=== PATIENT | male | born 1955 | race Caucasian/White ===

== ENCOUNTER 2016-06-10 08:55 | Day surgery (SDC) | payer OTHER ==
[~2016-06-10] VITALS: Ht 180.3 cm; Wt 81.8 kg
[~2016-06-10 08:55] MED LIST: LEVA500T PO; VALA500T PO
[2016-06-10 09:25] VITALS: BP 111/73; PULSE 82; RESP 20; TEMP 98; O2SAT 97
[2016-06-10] MEDS ORDERED: AZIT500T2 PO (09:26)
[2016-06-10] MEDS ORDERED: VALA500T PO (09:26)
[2016-06-10] MEDS ORDERED: FLUC200T2 PO (09:26)
[2016-06-10] MEDS ORDERED: ETHA400T PO (09:26)
[2016-06-10] MEDS ORDERED: KETO2AER3 (09:26)
[2016-06-10] MEDS ORDERED: LIDOCAINE 1%/EPINEPHrine 1:100,000 SOLN 20 ML VIAL ONE (09:52)
[2016-06-10] MEDS ORDERED: MIDAZOLAM HCL 5 MG/5 ML VIAL ONE (09:54)
[2016-06-10] MEDS ORDERED: fentaNYL CITRATE 250 MCG/5 ML AMP ONE (09:54)
[2016-06-10] MEDS ORDERED: IMPLANTED VASCULAR ACCESS DEVICE/PORT - SODIUM CHLORIDE FLUSH IV FLUSH SCH (10:00)
[2016-06-10] MEDS ORDERED: SODIUM CHLORIDE 0.9% FLUSH 10 ML FLUSH IV FLUSH PRN ×2 (10:00)
[2016-06-10] MEDS ORDERED: SODIUM CHLOR 0.9% 1000 ML IV SCH (10:00)
[2016-06-10] MEDS ORDERED: IMPLANTED VASCULAR ACCESS DEVICE/PORT - SODIUM CHLORIDE FLUSH PRN IV FLUSH (10:00)
[2016-06-10 11:00] VITALS: BP 110/56; PULSE 76; RESP 20; TEMP 98.4; O2SAT 93
[2016-06-10 11:09] LABS: BONE MARROW PROCESSING COMPLETE; IRON STAIN DONE; JENNER GIEMSA STAIN DONE
[2016-06-10 11:15] VITALS: BP 109/60; PULSE 76; RESP 20; O2SAT 97
[2016-06-10 11:38] LABS: HEMATOCRIT 33.6 % (39.0-51.0); MEAN CORPUSCULAR HEMOGLOBIN 26.8 PG (27.0-34.0); PLATELET COUNT 93 TH/MM3 (150-450); RED BLOOD COUNT 4.14 MIL/MM3 (4.50-5.90); RED CELL DISTRIBUTION WIDTH 17.9 % (11.6-17.2); WHITE BLOOD COUNT 4.7 TH/MM3 (4.0-11.0)
[2016-06-10 11:39] LABS: HEMO FLAGS AUTO DIFF
[2016-06-10 11:45] VITALS: BP 104/63; PULSE 76; RESP 20; O2SAT 97
[2016-06-10 12:15] VITALS: BP 119/74; PULSE 90; RESP 20; O2SAT 97
[2016-06-10 13:05] LABS: BANDS 9 % (0-6); BASOPHILS 2 % (0-2); EOSINOPHILS 8 % (0-4); METAMYELOCYTES 5 % (0-1); MYELOCYTES 2 % (0-0); NEUTROPHIL # MANUAL DIFF 3.5 TH/MM3 (1.8-7.7); POLYS (SEG NEUTROPHILS) 58 % (16-70); WBC DIFF SAMPLE 100
[2016-06-10 13:06] LABS: OVALOCYTES 1+ (NORMAL)
[2016-06-10 13:07] LABS: PLATELET ESTIMATE SMEAR LOW (NORMAL); PLATELET MORPHOLOGY NORMAL (NORMAL); SCAN/DIFF FINAL DIFF MANUAL
--- NOTE | 2016-06-10 13:39 | RADRPT ---
EXAM DATE/TIME: 06/10/2016 10:29 [facility] COMPARISON: CT NEEDLE BIOPSY BONE MARROW, August 21, 2015, 12:48. INDICATIONS : Lymphoma. SEDATION TIME: 15 minutes BIOPSY SITE: Right MEDICATION(S): 1.) 3 mg midazolam (Versed) IV 2.) 150 mcg fentanyl (Sublimaze) IV DEVICE(S): 1.) 11 gauge Bone marrow biopsy needle MEDICAL HISTORY : Non-Hodgkin's lymphoma SURGICAL HISTORY : Appendectomy. ENCOUNTER: Initial ACUITY: 1 day PAIN SCORE: 0/10 LOCATION: pelvis A total of one core specimen(s) were obtained and sent to the laboratory for pathologic evaluation. PROCEDURE: 1. CT guided bone marrow biopsy. 2. Conscious sedation with continuous EKG and oximetry monitoring. 3. EKG and oximetry remained stable throughout the procedure. Prior to the procedure informed consent was obtained. Any appropriate prior imaging studies were rev iewed. Using automated exposure control and adjustment of the mA and/or kV according to patient size , radiation dose was kept as low as reasonably achievable to obtain optimal diagnostic quality images . The site was prepped in a sterile fashion. Full sterile technique was used, including cap, mask, sonam rile gloves and gown and a large sterile sheet. Hand hygiene and 2% chlorhexidine and/or betadine/al cohol prep was utilized per protocol for cutaneous antisepsis. The skin and subcutaneous tissues wer e infiltrated with local anesthetic solution. With CT guidance the posterior right iliac bone was localized. The needle was repositioned more media l after the saved image that is archived. Biopsy was performed using the prescribed needle as above. Following biopsy marrow aspiration was performed with repeat puncture. Adequate hemostasis was obtai shannon with compression at the puncture site. Conscious sedation was performed with the prescribed dosages and duration as above in the presence of an independent trained radiology nurse to assist in the monitoring of the patient. EKG and oximetry remained stable throughout the procedure. The patient tolerated the procedure well and there were no complications. The patient was sent to Radiology Outpatient Unit in stable condition. CONCLUSION: 1. Uncomplicated CT guided bone marrow aspirate. 2. Uncomplicated CT guided bone marrow biopsy. Richy Cabrera MD on June 10, 2016 at 13:35 Board Certified Radiologist. This report was verified electronically.
== END 2016-06-10 13:35 | disposition home or self-care (01) ==
LOC: HRIP 08:55 → HRAD 08:55
PROVIDERS: ATTEND Internal Medicine Hematology & Oncology
DX: C81.90 Hodgkin lymphoma, unspecified, unspecified site (principal); D64.9 Anemia, unspecified
CPT/HCPCS: 38221; 77012; 85007; 85027; 85097; 87116; 88305; 88311; 88312; 88313; 88341; 99152; 99153; C1830; G0364; J2250; J3010; J7030; 88342

== ENCOUNTER 2016-10-18 09:54 | Day surgery (SDC) | payer OTHER ==
[~2016-10-18] VITALS: Ht 180.3 cm; Wt 72.7 kg
[~2016-10-18 09:54] MED LIST changes: +AZIT500T2 PO; +ETHA400T PO; +FLUC200T2 PO; +KETO2AER3; -LEVA500T PO
[2016-10-18 10:11] VITALS: BP 105/65; PULSE 83; RESP 20; TEMP 97.6; O2SAT 99
[2016-10-18] MEDS ORDERED: NAPR500 PO (10:22)
[2016-10-18] MEDS ORDERED: SODIUM CHLOR 0.9% 1000 ML IV SCH (10:30)
[2016-10-18 10:54] LABS: HEMATOCRIT 30.9 % (39.0-51.0); MEAN CELL VOLUME 93.8 FL (80.0-100.0); MEAN CORPUSCULAR HEMOGLOBIN 30.7 PG (27.0-34.0); MEAN CORPUSCULAR HGB CONC 32.8 % (32.0-36.0); PLATELET COUNT 34 TH/MM3 (150-450); RED BLOOD COUNT 3.29 MIL/MM3 (4.50-5.90); RED CELL DISTRIBUTION WIDTH 23.5 % (11.6-17.2); WHITE BLOOD COUNT 4.4 TH/MM3 (4.0-11.0)
[2016-10-18 10:57] LABS: HEMO FLAGS AUTO DIFF
[2016-10-18 11:05] LABS: APTT (PATIENT) 41.7 SEC (24.3-30.1); INTERNATIONAL NORMALIZED RATIO 1.2 RATIO; PROTHROMBIN TIME - PATIENT 12.8 SEC (9.8-11.6)
[2016-10-18 11:34] LABS: BANDS 2 % (0-6); BLASTS 1 % (0-0); CORRECTED NUCLEATED RBC 1 /100 WBC (0-0); EOSINOPHILS 17 % (0-4); NEUTROPHIL # MANUAL DIFF 3.3 TH/MM3 (1.8-7.7); POLYS (SEG NEUTROPHILS) 72 % (16-70); WBC DIFF SAMPLE 100
[2016-10-18 11:35] LABS: OVALOCYTES 2+ (NORMAL); PLATELET ESTIMATE SMEAR LOW (NORMAL); PLATELET MORPHOLOGY NORMAL (NORMAL); SCAN/DIFF FINAL DIFF MANUAL; TEARDROP RBCS 1+ (NORMAL)
[2016-10-18] MEDS ORDERED: fentaNYL CITRATE 250 MCG/5 ML AMP ONE (11:47)
[2016-10-18] MEDS ORDERED: MIDAZOLAM HCL 2 MG/2 ML VIAL ONE ×2 (11:47→11:48)
[2016-10-18] MEDS ORDERED: LIDOCAINE HCL 1% 20 ML VIAL ONE (11:54)
--- NOTE | 2016-10-18 12:09 | PD.RAD ---
Post CT Procedure Prog Note Pre Procedure Diagnosis: (1) Neutropenic fever (2) low grade follicular lymphoma, stage IV Post Procedure Diagnosis: (1) Neutropenic fever (2) low grade follicular lymphoma, stage IV Procedure Date: Oct 18, 2016 Supervising Radiologist: Reginaldo Cramer Anesthesia: Conscious Sedation Plan of Activity Patient to Unit: ROPU Patient Condition: Good Additional Comments: left iliac bm bx See PACS Report for procedural detail/treatment Reginaldo Cramer MD Oct 18, 2016 12:09
[2016-10-18 12:20] VITALS: BP 84/53; PULSE 66; RESP 18; TEMP 97; O2SAT 95
[2016-10-18 12:35] VITALS: BP 90/52; PULSE 65; RESP 18; O2SAT 93
[2016-10-18 12:43] LABS: BONE MARROW PROCESSING COMPLETE; IRON STAIN DONE; JENNER GIEMSA STAIN DONE
[2016-10-18 12:50] VITALS: BP 89/50; PULSE 60; RESP 16; O2SAT 99
[2016-10-18 13:20] VITALS: BP 88/49; PULSE 56; RESP 16; O2SAT 96
--- NOTE | 2016-10-18 13:47 | RADRPT ---
EXAM DATE/TIME: 10/18/2016 11:55 [facility] COMPARISON: CT NEEDLE BIOPSY BONE MARROW, June 10, 2016, 10:29. INDICATIONS : Non-Hodgkin's lymphoma. SEDATION TIME: 30 minutes BIOPSY SITE: Left MEDICATION(S): 1.) 2 mg midazolam (Versed) IV 2.) 100 mcg fentanyl (Sublimaze) IV DEVICE(S): 1.) 11 gauge Bone marrow biopsy needle MEDICAL HISTORY : Non-Hodgkin's lymphoma SURGICAL HISTORY : Appendectomy. ENCOUNTER: Initial ACUITY: 1 day PAIN SCORE: 0/10 LOCATION: Left pelvis A total of two core specimen(s) were obtained and sent to the laboratory for pathologic evaluation. PROCEDURE: 1. CT guided bone marrow biopsy. 2. Conscious sedation with continuous EKG and oximetry monitoring. 3. EKG and oximetry remained stable throughout the procedure. Prior to the procedure informed consent was obtained. Any appropriate prior imaging studies were rev iewed. Using automated exposure control and adjustment of the mA and/or kV according to patient size , radiation dose was kept as low as reasonably achievable to obtain optimal diagnostic quality images . DICOM format image data is available electronically for review and comparison. The site was prepped in a sterile fashion. Full sterile technique was used, including cap, mask, sonam rile gloves and gown and a large sterile sheet. Hand hygiene and 2% chlorhexidine and/or betadine/al cohol prep was utilized per protocol for cutaneous antisepsis. The skin and subcutaneous tissues wer e infiltrated with local anesthetic solution. With CT guidance the previously identified target was localized. Biopsy was performed using the presc ribed needle as above. Following biopsy marrow aspiration was performed with repeat puncture. Adequa te hemostasis was obtained with compression at the puncture site. Follow-up CT scan reveals no hemorrhage. Conscious sedation was performed with the prescribed dosages and duration as above in the presence of an independent trained radiology nurse to assist in the monitoring of the patient. EKG and oximetry remained stable throughout the procedure. The patient tolerated the procedure well and there were no complications. The patient was sent to Radiology Outpatient Unit in stable condition. CONCLUSION: 1. Uncomplicated CT guided bone marrow aspirate. 2. Uncomplicated CT guided bone marrow biopsy. Reginaldo Cramer MD on October 18, 2016 at 13:45 Board Certified Radiologist. This report was verified electronically.
[2016-10-18 14:55] VITALS: BP 108/60; PULSE 62; RESP 15; O2SAT 96
== END 2016-10-18 14:55 | disposition home or self-care (01) ==
LOC: HRAD 09:54 → HRIP 09:55 → HRAD 14:55
PROVIDERS: ATTEND Internal Medicine Hematology & Oncology
DX: C82.80 Other types of follicular lymphoma, unspecified site (principal); D70.9 Neutropenia, unspecified; R50.81 Fever presenting with conditions classified elsewhere; Z01.818 Encounter for other preprocedural examination; A31.9 Mycobacterial infection, unspecified; J45.909 Unspecified asthma, uncomplicated; E78.5 Hyperlipidemia, unspecified; D69.6 Thrombocytopenia, unspecified
CPT/HCPCS: 38221; 77012; 85007; 85027; 85097; 85610; 85730; 87015; 88305; 88311; 88313; 99152; 99153; C1830; G0364; J2250; J3010

== ENCOUNTER 2016-11-10 12:04 | Inpatient (IN) | payer OTHER ==
[2016-11-09 17:00] VITALS: BP 102/68; PULSE 96; RESP 18; TEMP 98.6; O2SAT 97
[~2016-11-10] VITALS: Ht 180.3 cm; Wt 79.9 kg
[2016-11-10] VITALS (9 sets, daily range): BP systolic 102–124; BP diastolic 64–76; PULSE 80–117; RESP 18–24; TEMP 96.8–98; O2SAT 96–99
[~2016-11-10 12:04] MED LIST changes: -FLUC200T2 PO; -KETO2AER3; +NAPR500 PO
[2016-11-10] MEDS ORDERED: RIFA300C2 PO (12:21)
[2016-11-10] MEDS ORDERED: SODIUM CHLORIDE 0.9% FLUSH 10 ML FLUSH IVF PRN (12:30)
--- NOTE | 2016-11-10 12:30 | PD ---
HPI Chief Complaint: Respiratory Symptoms Time Seen by Provider: 12:18 Travel History International Travel<30 days: No Contact w/Intl Traveler<30days: No Traveled to known affect area: No History of Present Illness HPI The patient is 61 years old. He arrives with a complaint of shortness of breath for the past few days. He has a history of lymphoma (Hodgkin's and follows at the [facility]. He also follows with Dr. Massey here.) Shortness of breath on exertion reported. He has no chest pain. He reports his last chemotherapy was a weeks ago. He stopped undergoing chemotherapy due to thrombocytopenia. Additional complaints include generalized abdominal swelling and a bloating sensation much worse after eating even a small amount of food. He denies fever. PFSH Past Medical History Blood Disorders: No Cancer: Yes (HODGKINS LYMPHOMA ( IN TREATMENT NOW)) Cardiovascular Problems: No Chemotherapy: Yes (8 weeks ago) Diabetes: No Diminished Hearing: Yes (TINNITIS) Endocrine: No Genitourinary: No Hepatitis: No Hiatal Hernia: No Immune Disorder: No Musculoskeletal: No Neurologic: No Psychiatric: No Reproductive: No Respiratory: Yes Immunizations Current: Yes Sleep Apnea: Yes (SLEEPS WITH BIPAP) Thyroid Disease: No Past Surgical History Abdominal Surgery: Yes (APPEND.) AICD: No Appendectomy: Yes (1989) Body Medical Devices: INFUSA PORT LEFT CHEST Cardiac Surgery: No Ear Surgery: No Endocrine Surgery: No Eye Surgery: No Genitourinary Surgery: No Gynecologic Surgery: No Joint Replacement: No Neurologic Surgery: No Oral Surgery: Yes (TONSILS, NASO PLASTY) Pacemaker: No Thoracic Surgery: Yes (LEFT CHEST PORT) Tonsillectomy: Yes (3-4 YEARS OLD) Other Surgery: Yes (BILAT NASALPLASTY) Social History Alcohol Use: Yes ([facility]) Tobacco Use: Yes ([facility] CIGAR) Substance Use: No Allergies-Medications (Allergen,Severity, Reaction): Coded Allergies: peanut (Unverified Allergy, Severe, STOPS BREATHING, 10/18/16) ketorolac (Unverified Allergy, Intermediate, RASH, 10/18/16) codeine (Unverified Adverse Reaction, Mild, Nausea/Vomiting, 10/18/16) Reported Meds & Prescriptions Reported Meds & Active Scripts Active Reported Rifampin 300 Mg Cap 600 Mg PO DAILY Naprosyn (Naproxen) 500 Mg Tab 500 Mg PO DAILY Ethambutol (Ethambutol HCl) 400 Mg Tab PO DAILY Azithromycin 500 Mg Tab 500 Mg PO DAILY Valacyclovir (Valacyclovir HCl) 500 Mg Tab 500 Mg PO DAILY Review of Systems Except as stated in HPI: all other systems reviewed are Neg General / Constitutional: No: Fever Respiratory: Positive: Shortness of Breath Physical Exam Narrative GENERAL: Well-nourished well-developed 61-year-old male SKIN: Warm and dry. Blanching urticarial rash involving the extremities and back. HEAD: Atraumatic. Normocephalic. EYES: Pupils equal and round. No scleral icterus. No injection or drainage. ENT: No nasal bleeding or discharge. Mucous membranes pink and moist. NECK: Trachea midline. No JVD. CARDIOVASCULAR: Regular rhythm. Tachycardia. RESPIRATORY: No accessory muscle use. Clear to auscultation. Breath sounds equal bilaterally. GASTROINTESTINAL: Abdomen soft, non-tender, nondistended. Hepatic and splenic margins not palpable. MUSCULOSKELETAL: 2+ pitting edema bilateral lower extremities. No gross deformity. NEUROLOGICAL: Awake and alert. No obvious cranial nerve deficits. Motor grossly within normal limits. Five out of 5 muscle strength in the arms and legs. Normal speech. PSYCHIATRIC: Appropriate mood and affect; insight and judgment normal. Data Data Last Documented VS Vital Signs Date Time Temp Pulse Resp B/P (MAP) Pulse Ox O2 Delivery O2 Flow Rate FiO2 11/10/16 15:14 96 19 106/66 (79) 98 Nasal Cannula 2.00 11/10/16 12:33 97.8 Vital signs reviewed, blood pressure 107/70 Orders Orders Iv Access Insert/Monitor (11/10/16 12:28) Ecg Monitoring (11/10/16 12:28) Oximetry (11/10/16 12:28) Oxygen Administration (11/10/16 12:28) Chest, Single Ap (11/10/16 12:28) Sodium Chloride 0.9% Flush (Ns Flush) (11/10/16 12:30) Ct Abd/Pel W Iv Contrast(Rout) (11/10/16 12:28) Ct Pulmonary Angiogram (11/10/16 12:38) Iohexol 350 Inj (Omnipaque 350 Inj) (11/10/16 13:23) Type And Screen (11/10/16 15:16) Platelet Pheresis (11/10/16 15:16) Blood Product Administration (11/10/16 15:16) Sodium Chlor 0.9% 250 Ml Inj (Ns 250 Ml (11/10/16 15:30) Invasive Rad Dept Consult (11/10/16 ) Admit Order (Ed Use Only) (11/10/16 15:29) MDM Medical Decision Making Medical Screen Exam Complete: Yes Emergency Medical Condition: Yes Medical Record Reviewed: Yes Differential Diagnosis Edema, anasarca, liver failure, renal failure, hypoalbuminemia, pleural effusion , PE Narrative Course Blood work from earlier today: WBC 6.1 Hb 10.8 Plt 35 CMP: BUN 36 Cr 1.10 T bili 7.6 AST 67 Alk phos 581 LDH 342 Albumin 2.2 INR 1.4 EKG shows a rate of 96 sinus rhythm, normal axis and intervals Last [address] Angiography 11/10/16 1238 Signed Impressions: Service Date/Time: October 13:17 - CONCLUSION: 1. No evidence of pulmonary embolism. 2. Small to moderate sized bilateral pleural effusions with adjacent compressive atelectasis. 3. Right axillary lymphadenopathy and mildly enlarged left paraaortic retrocrural lymphadenopathy. 4. Hepatosplenomegaly. 5. Ascites within the upper abdomen. 6. Tiny pericardial effusion. 7. Coronary artery calcifications. Leonel Brand MD Chest X-Ray 11/10/168 Signed Impressions: Service Date/Time: October 12:35 - CONCLUSION: 1. Small bilateral pleural effusions. 2. Bibasilar atelectasis and/or mild infiltrates. 3. Degenerative changes and scoliosis of the thoracolumbar spine. Leonel Brand MD Abdomen/Pelvis CT 11/10/16 1228 Signed Impressions: Service Date/Time: October 13:17 - CONCLUSION: 1. Moderate sized bilateral pleural effusions. 2. Heterogeneous enhancement of the liver with diffuse ascites suggesting cirrhosis. 3. Abnormal retroperitoneal adenopathy with nodes measuring up to 2.2 cm. These would be concerning for malignancy. 4. Degenerative changes within the spine. Andry Lucero MD Case discussed with Dr. Lucero of radiology who will perform thoracentesis tonight. 2 units of platelets ordered. Case discussed with Dr. Massey of hematology oncology. Case d/w Dr. Venegas for [facility]. Pt follows with [facility] with known hx hyperbilirubinemia however etiology unknown. Diagnosis Primary Impression: Hyperbilirubinemia Additional Impressions: Pleural effusion Shortness of breath Admitting Information Admitting Physician Requests: Andry Petty MD Nov 10, 2016 12:30
[2016-11-10] MEDS ORDERED: IOHEXOL 350 MG/ML 10 ML VIAL (for RAD DIAG) IVCONTRAST ONE (13:23)
--- NOTE | 2016-11-10 13:55 | RADRPT ---
EXAM DATE/TIME: 11/10/2016 13:17 [facility] COMPARISON: CT NEEDLE BIOPSY BONE MARROW, October 18, 2016, 11:55. INDICATIONS : New hyperbilirubinemia. Abdominal bloating. IV CONTRAST: 99 cc Omnipaque 350 (iohexol) IV ; Cumulative dose for multiple exams. ORAL CONTRAST: No oral contrast ingested. RADIATION DOSE: 9.81 CTDIvol (mGy) MEDICAL HISTORY : Lymphoma. SURGICAL HISTORY : Appendectomy. ENCOUNTER: Initial ACUITY: 1 day PAIN SCALE: 3/10 LOCATION: Bilateral abdomen TECHNIQUE: Volumetric scanning of the abdomen and pelvis was performed. Using automated exposure control and ad justment of the mA and/or kV according to patient size, radiation dose was kept as low as reasonably achievable to obtain optimal diagnostic quality images. DICOM format image data is available electro nically for review and comparison. FINDINGS: Imaging through the lung bases demonstrates moderate-sized bilateral pleural effusions and some compr essive atelectasis in both lower lobes. The liver appears small and somewhat heterogeneous suggesting possible cirrhosis. The spleen appears mildly enlarged. There is ascites throughout the upper abdomen. The pancreas, adrenal glands and kidneys are intact. The abdominal aorta is normal in caliber. There are scattered, mildly enlarged retroperitoneal lymph nodes. The largest node identified measures approximately 2.2 cm. These are abnormal by CT size crite fe. The visualized loops of small large bowel are unremarkable. There is ascites within the pelvis. There is no significant iliac or inguinal adenopathy. The visualized bony structures demonstrate degenerative changes and rotatory scoliosis but are otherw ise intact. CONCLUSION: 1. Moderate sized bilateral pleural effusions. 2. Heterogeneous enhancement of the liver with diffuse ascites suggesting cirrhosis. 3. Abnormal retroperitoneal adenopathy with nodes measuring up to 2.2 cm. These would be concerning f or malignancy. 4. Degenerative changes within the spine. Andry Lucero MD on November 10, 2016 at 13:46 Board Certified Radiologist. This report was verified electronically.
--- NOTE | 2016-11-10 14:42 | RADRPT ---
EXAM DATE/TIME: 11/10/2016 13:17 [facility] COMPARISON: No previous studies available for comparison. INDICATIONS : Dyspnea, tachycardia. IV CONTRAST: 99 cc Omnipaque 350 (iohexol) IV ; Cumulative dose for multiple exams. RADIATION DOSE: 16.61 CTDIvol (mGy) MEDICAL HISTORY : Lymphoma. SURGICAL HISTORY : Appendectomy. ENCOUNTER: Initial ACUITY: 1 day PAIN SCALE: 0/10 LOCATION: Chest TECHNIQUE: Volumetric scanning of the chest was performed using a pulmonary embolism protocol MIP images were re constructed. Using automated exposure control and adjustment of the mA and/or kV according to patien t size, radiation dose was kept as low as reasonably achievable to obtain optimal diagnostic quality images. DICOM format image data is available electronically for review and comparison. Follow-up recommendations for detected pulmonary nodules are based at a minimum on nodule size and pa tient risk factors according to Fleischner Society Guidelines. FINDINGS: Small to moderate sized bilateral pleural effusions are noted. Compressive atelectasis is noted within the posterior lung fernández bilaterally. There is no evidence of pulmonary embolism. Tomeka pical fibrotic scarring and pleural thickening is noted. Extensive right axillary lymphadenopathy is noted. No med iastinal, hilar or left axillary lymphadenopathy is noted. No pulmonary nodule or mass is noted. No pulmonary edema is noted. Tiny pericardial effusion is noted. Ascites is noted within the upper abdomen. Hepatospleno megaly is noted. Note is made of an enlarged left paraaortic left retrocrural lymph node measuring 14 mm in gr eatest dimension within the upper abdomen. Coronary artery calcifications are noted. CONCLUSION: 1. No evidence of pulmonary embolism. 2. Small to moderate sized bilateral pleural effusions with adjacent compressive atelectasis. 3. Right axillary lymphadenopathy and mildly enlarged left paraaortic retrocrural lymphadenopathy. 4. Hepatosplenomegaly. 5. Ascites within the upper abdomen. 6. Tiny pericardial effusion. 7. Coronary artery calcifications. Leonel Brand MD on November 10, 2016 at 14:05 Board Certified Radiologist. This report was verified electronically.
--- NOTE | 2016-11-10 14:43 | RADRPT ---
EXAM DATE/TIME: 11/10/2016 12:35 [facility] COMPARISON: CHEST SINGLE AP, December 08, 2015, 18:45. INDICATIONS : Shortness of breath. MEDICAL HISTORY : Hodgkin's lymphoma. SURGICAL HISTORY : Port. ENCOUNTER: Initial ACUITY: 2 weeks PAIN SCORE: 0/10 LOCATION: Bilateral chest FINDINGS: Small bilateral pleural effusions are noted. Bibasilar atelectasis and/or infiltrates are noted. A l eft subclavian [id number] has its tip in the superior vena cava near the right atrium. There is n o pneumothorax. No pulmonary edema is noted. Degenerative changes and scoliosis of the thoracolumba r spine are noted. CONCLUSION: 1. Small bilateral pleural effusions. 2. Bibasilar atelectasis and/or mild infiltrates. 3. Degenerative changes and scoliosis of the thoracolumbar spine. Leonel Brand MD on November 10, 2016 at 12:55 Board Certified Radiologist. This report was verified electronically.
[2016-11-10] MEDS ORDERED: SODIUM CHLOR 0.9% 250 ML INJ 250 ML IV ONE (15:30)
[2016-11-10] MEDS ORDERED: SODIUM CHLORIDE 0.9% FLUSH 10 ML FLUSH IV FLUSH PRN (15:45)
[2016-11-10] MEDS ORDERED: NALOXONE HCL 0.4 MG/ML AMP IV PUSH PRN (15:45)
[2016-11-10] MEDS ORDERED: TEMAZEPAM 15 MG CAP PO PRN (15:45)
[2016-11-10] MEDS ORDERED: ACETAMINOPHEN 325 MG TAB PO PRN (15:45)
[2016-11-10] MEDS ORDERED: MAGNESIUM HYDROXIDE SUSP 30 ML CUP PO PRN (15:45)
[2016-11-10] MEDS ORDERED: ONDANSETRON HCL 4 MG/2 ML VIAL IVP PRN (15:45)
--- NOTE | 2016-11-10 16:04 | HHI.HP ---
HPI Service CP Hospitalists Primary Care Physician Non-Staff Admission Diagnosis Bilat Pleural Effusions; Dyspnea; Hyperbilirubinemia; Thrombocytopen Chief Complaint: shortness of breath Travel History International Travel<30 Days: No Contact w/Intl Traveler <30 Da: No Traveled to Known Affected Are: No History of Present Illness The patient is a 61 years male patient old with a past medical history Non Hodgkin lymphoma, thrombocytopenia, dyslipidemia, nephrolithiasis, hyperbilirubinemia and non mycobacterium disseminated TB. Patient has a history of lymphoma (non-Hodgkin's and follows at the [facility]. He also follows with Dr. Massey.) He reports his last chemotherapy was a weeks ago. He stopped undergoing chemotherapy due to thrombocytopenia. Patient presented to the ER with a complaint of shortness of breath for the past few days. Shortness of breath worse with exertion. Denies chest pain. Patient also endorses generalized abdominal swelling and a bloating sensation much worse after eating even a small amount of food. Patient denies fever or chills. Review of Systems Constitutional: COMPLAINS OF: Fatigue, DENIES: Fever, Chills Respiratory: COMPLAINS OF: Shortness of breath Cardiovascular: COMPLAINS OF: Dyspnea on Exertion, DENIES: Chest pain, Palpitations Gastrointestinal: COMPLAINS OF: Abdominal pain, DENIES: Black stools, Bloody stools, Nausea, Vomiting Neurologic: DENIES: Abnormal gait, Headache, Localized weakness Psychiatric: DENIES: Anxiety, Confusion, Depression Past Family Social History Past Medical History Dyslipidemia Nephrolithiasis Thrombocytopenia (08/05/13. Platelet 137.) in 2014 Colonic polyp (07/17/14. 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 CT neck. Adenopathy submandibular, submental , supraclavicular. Two subcentimeter nodule L parotid. L jugulodigastric LN. hyperbilirubinemia non mycobacterium TB disseminated Past Surgical History Rhinoplasty Colonoscopy in 2014 Appendectomy in 1990 Tonsillectomy in 1957 Reported Medications Rifampin 300 Mg Cap 600 Mg PO DAILY Naprosyn (Naproxen) 500 Mg Tab 500 Mg PO DAILY Ethambutol (Ethambutol HCl) 400 Mg Tab PO DAILY Azithromycin 500 Mg Tab 500 Mg PO DAILY Valacyclovir (Valacyclovir HCl) 500 Mg Tab 500 Mg PO DAILY Allergies: Coded Allergies: peanut (Unverified Allergy, Severe, STOPS BREATHING, 10/18/16) ketorolac (Unverified Allergy, Intermediate, RASH, 10/18/16) codeine (Unverified Adverse Reaction, Mild, Nausea/Vomiting, 10/18/16) Active Ordered Medications Current Medications Medications (Trade) Dose Ordered Sig/Balbina Route Start Time Stop Time Status Last Admin (NS Flush) 2 ml UNSCH PRN IVF 11/10/16 12:30 Sodium Chloride 250 ml @ 15 mls/hr ONCE ONCE IV 11/10/16 15:30 11/11/16 08:09 (NS Flush) 2 ml UNSCH PRN IV FLUSH 11/10/16 15:45 UNV (NS Flush) 2 ml BID IV FLUSH 11/10/16 21:00 UNV (Tylenol) 650 mg Q4H PRN PO 11/10/16 15:45 UNV (Zofran Inj) 4 mg Q6H PRN IVP 11/10/16 15:45 UNV (Restoril) 15 mg HS PRN PO 11/10/16 15:45 UNV (Narcan Inj) 0.4 mg UNSCH PRN IV PUSH 11/10/16 15:45 UNV (Milk Of Magnesia Liq) 30 ml Q12H PRN PO 11/10/16 15:45 UNV (Valtrex) 500 mg DAILY PO 11/11/16 09:00 UNV Non-Formulary Medication 600 mg DAILY PO 11/11/16 09:00 UNV (Myambutol) 400 mg DAILY PO 11/11/16 09:00 UNV Physical Exam Vital Signs Vital Signs Date Time Temp Pulse Resp B/P (MAP) Pulse Ox O2 Delivery O2 Flow Rate FiO2 11/10/16 15:14 96 19 106/66 (79) 98 Nasal Cannula 2.00 11/10/16 13:09 98 22 124/76 (92) 99 Nasal Cannula 4.00 11/10/16 12:35 Nasal Cannula 2.00 11/10/16 12:34 96 Room Air 11/10/16 12:33 97.8 97 18 124/76 (92) 96 Room Air 11/10/16 12:07 97.8 117 24 107/70 (82) 98 Room Air Physical Exam GENERAL: This is a thin chronically ill appearing male patient, short of breath with conversation SKIN: No rashes, ecchymoses or lesions. Cool and dry. General thinning of skin EYES: Extraocular motions intact. Scleral icterus present. No injection or drainage. CARDIOVASCULAR: Regular rate and rhythm RESPIRATORY: diminished bilaterally GASTROINTESTINAL: Abdomen soft, non-tender, nondistended. No hepato-splenomegaly , or palpable masses. No guarding. MUSCULOSKELETAL: Extremities without clubbing, cyanosis, or edema. No joint tenderness, effusion, or edema noted. No calf tenderness. Negative Homans sign bilaterally. NEUROLOGICAL: Awake and alert. no focal deficits. Motor and sensory grossly within normal limits. Five out of 5 muscle strength in all muscle groups. Normal speech. Imaging Last Impressions CT Angiography 11/10/16 1238 Signed Impressions: Service Date/Time: October 13:17 - CONCLUSION: 1. No evidence of pulmonary embolism. 2. Small to moderate sized bilateral pleural effusions with adjacent compressive atelectasis. 3. Right axillary lymphadenopathy and mildly enlarged left paraaortic retrocrural lymphadenopathy. 4. Hepatosplenomegaly. 5. Ascites within the upper abdomen. 6. Tiny pericardial effusion. 7. Coronary artery calcifications. Leonel Brand MD Chest X-Ray 11/10/161227 Signed Impressions: Service Date/Time: October 12:35 - CONCLUSION: 1. Small bilateral pleural effusions. 2. Bibasilar atelectasis and/or mild infiltrates. 3. Degenerative changes and scoliosis of the thoracolumbar spine. Leonel Brand MD Abdomen/Pelvis CT 11/10/168 Signed Impressions: Service Date/Time: October 13:17 - CONCLUSION: 1. Moderate sized bilateral pleural effusions. 2. Heterogeneous enhancement of the liver with diffuse ascites suggesting cirrhosis. 3. Abnormal retroperitoneal adenopathy with nodes measuring up to 2.2 cm. These would be concerning for malignancy. 4. Degenerative changes within the spine. Andry Lucero MD Caprini VTE Risk Assessment Caprini VTE Risk Assessment: Mod/High Risk (score >= 2) Caprini Risk Assessment Model Point Value = 1 Point Value = 2 Point Value = 3 Point Value = 5 Age 41-60 Minor surgery BMI > 25 kg/m2 Swollen legs Varicose veins or History of unexplained or recurrent spontaneous Oral contraceptives or hormone replacement Sepsis (< 1 month) Serious lung disease, including pneumonia (< 1 month) Abnormal pulmonary function Acute myocardial infarction Congestive heart failure (< 1 month) History of inflammatory bowel disease Medical patient at bed rest Age 61-74 Arthroscopic surgery Major open surgery (> 45 min) Laparoscopic surgery (> 45 min) Malignancy Confined to bed (> 72 hours) Immobilizing plaster cast Central venous access Age >= 75 History of VTE Family history of VTE Factor V Leiden Prothrombin [id number] Lupus anticoagulant Anticardiolipin antibodies Elevated serum homocysteine Heparin-induced thrombocytopenia Other congenital or acquired thrombophilia Stroke (< 1 month) Elective arthroplasty Hip, pelvis, or leg fracture Acute spinal cord injury (< 1 month) Prophylaxis Regimen Total Risk Factor Score Risk Level Prophylaxis Regimen 0-1 Low Early ambulation 2 Moderate Order ONE of the following: *Sequential Compression Device (SCD) *Heparin 5000 units SQ BID 3-4 Higher Order ONE of the following medications: *Heparin 5000 units SQ TID *Enoxaparin/Lovenox 40 mg SQ daily (WT < 150 kg, CrCl > 30 mL/min) *Enoxaparin/Lovenox 30 mg SQ daily (WT < 150 kg, CrCl > 10-29 mL/min) *Enoxaparin/Lovenox 30 mg SQ BID (WT < 150 kg, CrCl > 30 mL/min) AND/OR *Sequential Compression Device (SCD) 5 or more Highest Order ONE of the following medications: *Heparin 5000 units SQ TID (Preferred with Epidurals) *Enoxaparin/Lovenox 40 mg SQ daily (WT < 150 kg, CrCl > 30 mL/min) *Enoxaparin/Lovenox 30 mg SQ daily (WT < 150 kg, CrCl > 10-29 mL/min) *Enoxaparin/Lovenox 30 mg SQ BID (WT < 150 kg, CrCl > 30 mL/min) AND *Sequential Compression Device (SCD) Assessment and Plan Problem List: (1) Pleural effusion ICD Codes: J90 - Pleural effusion, not elsewhere classified Plan: - Left US guided thoracentesis diagnostic and therapeutic - supplemental oxygen - cardiac telemetry - repeat labs in AM - PT consult - CT angiogram reviewed and reveals: no evidence of PE. Small to moderate- sized bilateral pleural effusions and adjacent compressive atelectasis. Small axillary lymphadenopathy and mildly enlarged left periaortic retrocrural lymphadenopathy. Hepatosplenomegaly. Ascites within the upper abdomen. Tiny pericardial effusion. Coronary artery calcifications - Chest x-ray reviewed and reveals small bilateral pleural effusions. By basilar atelectasis and/or infiltrate. Degenerative changes and scoliosis of the thoracolumbar spine - CT abdomen and pelvis reviewed and reveals moderate-sized bilateral pleural effusions. Heterogeneous enlargement of the liver with diffuse atelectasis suggesting cirrhosis. Abnormal retroperitoneal adenopathy with nodes measuring up to 2.2 cm. Concerning for malignancy - DVT prophylaxis with SCDs (2) Shortness of breath ICD Codes: R06.02 - Shortness of breath Plan: See above (3) Non-Hodgkin lymphoma ICD Codes: C85.90 - Non-Hodgkin lymphoma, unspecified, unspecified site Plan: See above Patient follows with [facility] as well as Dr. Massey locally last chemotherapy reported one week ago and placed on hold secondary to thrombocytopenia (4) Thrombocytopenia ICD Codes: D69.6 - Thrombocytopenia, unspecified Plan: recent chemotherapy which has been placed on hold secondary to thrombocytopenia recheck CBC in AM (5) Hyperbilirubinemia ICD Codes: E80.6 - Other disorders of bilirubin metabolism Plan: Chronic has been evaluated by [facility] See above Assessment and Plan Patient examined. Assessment and plan formulated with Damaris Arechiga PA-C. I agree with the above. Physician Certification 2 Midnight Certification Type: Admission for Inpatient Services Order for Inpatient Services The services are ordered in accordance with Medicare regulations or non- Medicare payer requirements, as applicable. In the case of services not specified as inpatient-only, they are appropriately provided as inpatient services in accordance with the 2-midnight benchmark. Estimated LOS (days): 3 days is the estimated time the patient will need to remain in the hospital, assuming treatment plan goals are met and no additional complications. Post-Hospital Plan: Not yet determined Damaris Arechiga Nov 10, 2016 16:04 Fredrick Venegas DO Nov 14, 2016 14:59
--- NOTE | 2016-11-10 17:38 | RADRPT ---
EXAM DATE/TIME: 11/10/2016 17:27 [facility] COMPARISON: CHEST SINGLE AP, November 10, 2016, 12:35. INDICATIONS : Post thoracentesis. MEDICAL HISTORY : Lymphoma. SURGICAL HISTORY : Appendectomy. ENCOUNTER: Subsequent ACUITY: 1 day PAIN SCORE: 0/10 LOCATION: Bilateral chest FINDINGS: Post thoracentesis examination demonstrates interval reduction in the amount of pleural effusion at t he left lung base. There is no pneumothorax. There is continued effusion on the right. [id number] is in acceptable position. CONCLUSION: 1. No pneumothorax identified post thoracentesis. Andry Lucero MD on November 10, 2016 at 17:36 Board Certified Radiologist. This report was verified electronically.
[2016-11-10] MEDS ORDERED: PHYTONADIONE 5 MG TAB PO ONE (18:00)
--- NOTE | 2016-11-10 18:00 | RADRPT ---
EXAM DATE/TIME: 11/10/2016 16:23 [facility] COMPARISON: No previous studies available for comparison. INDICATIONS : Left pleural effusion. MEDICAL HISTORY : Tinnitis. Hodgkins lymphoma. SURGICAL HISTORY : Tonsillectomy. Appendectomy. Bilateral nasalplasty. Left chest port. ENCOUNTER: Initial ACUITY: 2 weeks PAIN SCORE: 0/10 LOCATION: Left chest. FLUID: Total volume of 400 cc of clear, red fluid was removed. Fluid was sent to lab for ordered studies. TECHNIQUE: 1. Ultrasound guidance for thoracentesis. 2. Thoracentesis. The risks, benefits, and alternatives to ultrasound guided thoracentesis were explained to the patien t in lay simple terms, including the risk of bleeding and infection. Written and verbal informed con sent was obtained. Appropriate area for thoracentesis was marked under ultrasound guidance with the patient in the uprig ht position. Overlying skin was prepped and draped in the usual sterile fashion and with local anest hetic, a dermatotomy was made with an 11 blade scalpel. A 6 Pashto thoracentesis catheter was placed in the pleural space and fluid was removed. Catheter was then removed and a sterile dressing applie d. There were no immediate complications. The patient tolerated the procedure well and the left the ultrasound suite in stable condition. Chest radiograph is to be obtained. CONCLUSION: Uncomplicated ultrasound guided thoracentesis. Andry Lucero MD on November 10, 2016 at 17:58 Board Certified Radiologist. This report was verified electronically.
[2016-11-10 19:15] LABS: INTERNATIONAL NORMALIZED RATIO 1.3 RATIO; PROTHROMBIN TIME - PATIENT 14.7 SEC (9.8-11.6)
[2016-11-10 20:01] LABS: PLEURAL FLUID LYMPHS 48 %
[2016-11-10] MEDS ORDERED: SODIUM CHLORIDE 0.9% FLUSH 10 ML FLUSH IV FLUSH SCH (21:00)
[2016-11-11] VITALS (20 sets, daily range): BP systolic 66–120; BP diastolic 42–74; PULSE 20–131; RESP 16–22; TEMP 96.3–100.9; O2SAT 93–100
[2016-11-11] MEDS ORDERED: EPINEPHrine HCL (1:10,000) 1 MG/10 ML SYRINGE IV ONE (05:00)
[2016-11-11] MEDS ORDERED: CALCIUM CHLORIDE 10% SOLN 1 GRAM/10 ML SYR IV ONE (05:00)
[2016-11-11] MEDS ORDERED: SODIUM BICARBONATE 8.4% INJ 50 MEQ/50 ML SYR IV ONE (05:00)
[2016-11-11 07:32] LABS: HEMATOCRIT 27.7 % (39.0-51.0); MEAN CELL VOLUME 95.9 FL (80.0-100.0); MEAN CORPUSCULAR HEMOGLOBIN 31.4 PG (27.0-34.0); MEAN CORPUSCULAR HGB CONC 32.8 % (32.0-36.0); PLATELET COUNT 56 TH/MM3 (150-450); RED BLOOD COUNT 2.89 MIL/MM3 (4.50-5.90)
[2016-11-11 07:49] LABS: BICARBONATE 24.4 MEQ/L (21.0-32.0); POTASSIUM 4.6 MEQ/L (3.5-5.1)
[2016-11-11 08:10] LABS: HEMO FLAGS AUTO DIFF
[2016-11-11] MEDS ORDERED: LIDOCAINE HCL 1% 20 ML VIAL ONE (08:26)
[2016-11-11] MEDS ORDERED: SODIUM BICARBONATE 8.4% INJ 50 ML ONE (08:27)
[2016-11-11] MEDS ORDERED: MIDAZOLAM HCL 5 MG/5 ML VIAL ONE (08:30)
[2016-11-11 08:48] LABS: BANDS 1 % (0-6); CORRECTED NUCLEATED RBC 2 /100 WBC (0-0); NEUTROPHIL # MANUAL DIFF 4.8 TH/MM3 (1.8-7.7); PLATELET ESTIMATE SMEAR LOW (NORMAL); PLATELET MORPHOLOGY NORMAL (NORMAL); POLYS (SEG NEUTROPHILS) 79 % (16-70); SCAN/DIFF FINAL DIFF MANUAL; WBC DIFF SAMPLE 100
[2016-11-11 08:49] LABS: OVALOCYTES 1+ (NORMAL); TEARDROP RBCS 1+ (NORMAL)
[2016-11-11] MEDS ORDERED: RIFAMPIN 150 MG CAP PO SCH (09:00)
[2016-11-11] MEDS ORDERED: valACYclovir HCL 500 MG TAB PO SCH (09:00)
[2016-11-11] MEDS ORDERED: ETHAMBUTOL HCL 400 MG TAB PO SCH (09:00)
[2016-11-11] MEDS ORDERED: RIFAMPIN 600 MG PO SCH (09:00)
[2016-11-11] MEDS ORDERED: Vancomycin Consult Pharmacy 1 EA OTHER SCH (10:00)
--- NOTE | 2016-11-11 10:20 | RADRPT ---
EXAM DATE/TIME: 11/11/2016 09:33 [facility] COMPARISON: No previous studies available for comparison. INDICATIONS : Hypoalbuminemia. History of Hodgkin's lymphoma. SEDATION TIME: 15 minutes BIOPSY SITE: liver MEDICATION(S): 1.) 0.5 mg midazolam (Versed) IV 2.) 25 mcg fentanyl (Sublimaze) IV DEVICE(S): 1.) 18 gauge Temno core biopsy needle 9cm MEDICAL HISTORY : Lymphoma. SURGICAL HISTORY : Appendectomy. ENCOUNTER: Initial ACUITY: 1 day PAIN SCORE: 0/10 LOCATION: anterior A total of one core specimen(s) were obtained and sent to the laboratory for pathologic evaluation. PROCEDURE: 1. CT guided liver biopsy. 2. Conscious sedation with continuous EKG and oximetry monitoring. Prior to the procedure informed consent was obtained. Any appropriate prior imaging studies were rev iewed. Using automated exposure control and adjustment of the mA and/or kV according to patient size, radiat ion dose was kept as low as reasonably achievable to obtain optimal diagnostic quality images. DICOM format image data is available electronically for review and comparison. The site was prepped in a sterile fashion. Full sterile technique was used, including cap, mask, sonam rile gloves and gown and a large sterile sheet. Hand hygiene and 2% chlorhexidine and/or betadine/al cohol prep was utilized per protocol for cutaneous antisepsis. The skin and subcutaneous tissues wer e infiltrated with local anesthetic solution. With CT guidance the previously identified target was localized. Biopsy was performed using the presc ribed needle as above. Adequate hemostasis was obtained with compression at the puncture site. Follow-up CT scan reveals no hemorrhage. The patient tolerated the procedure well and there were no complications. The patient was returned to the Radiology Outpatient Unit in stable condition. CONCLUSION: Uncomplicated CT guided biopsy. Leonel Brand MD on November 11, 2016 at 10:18 Board Certified Radiologist. This report was verified electronically.
[2016-11-11] MEDS ORDERED: PIPERACIL-TAZO 3.375 GM PREMIX 50 ML IV SCH ×3 (11:00→13:00)
--- NOTE | 2016-11-11 11:37 | EKG ---
Date Performed: 11/10/2016 Time Performed: 12:51:53 PTAGE: 61 years EKG: Sinus rhythm NORMAL ECG Compared to prior tracing no significant change PREVIOUS TRACING : 11/06/2015 07.14 DOCTOR: Augustine Sosa Interpretating Date/Time 11/11/2016 11:36:21
[2016-11-11] MEDS ORDERED: diphenhydrAMINE HCL 50 MG/ML VIAL IV PUSH PRN ×2 (12:00→18:00)
[2016-11-11] MEDS ORDERED: VANCOMYCIN INJ 1,000 MG in SODIUM CHLOR 0.9% 250 ML INJ 250 ML IV SCH (12:00)
--- NOTE | 2016-11-11 15:18 | PD.CONS ---
History of Present Illness Service Infectious disease Consult Requested By Dr Silverio Venegas Reason for Consult Evaluate patient with fever, has non-Hodgkin's lymphoma Primary Care Physician Non-Staff Diagnoses: History of Present Illness Patient seen and examined. Records reviewed. Patient is a 61-year-old male, presented to the hospital, for further evaluation of worsening shortness of breath. Patient has a diagnosis of lymphoma, has been getting chemotherapy. He apparently has had significant thrombocytopenia related to the chemotherapy, and the last time he received treatment was probably about 6-8 weeks ago. His platelet counts have been remaining low. Patient stated that he started getting shortness of breath about 2 weeks ago which was initially with exertion. It has gotten worse so he presented to the hospital for further evaluation and treatment. He's also been having diarrhea probably in the last several weeks, and has noted generalized abdominal swelling, as well as a bloating sensation. He denies any nausea or vomiting. Patient denies any dysuria, but he had noted that it takes him a while to urinate. He feels like he is not emptying his bladder completely. He denies any respiratory complaint as far as cough, sore throat or any congestion. Patient underwent thoracenteses, and he has noted significant improvement in his breathing. Since admission patient had a temperature about 100.6. Patient states that he in the past has chronic fever up to 103, but since he's been on the methylprednisolone, his temperatures have been much improved. His been taking steroids in the last 1 month. Patient currently is not neutropenic. He had a CTA of the chest which did not show any pulmonary embolism, but did show evidence of pleural effusion, tiny pericardial effusion, and some lymphadenopathy. CT of the abdomen and pelvis showing some findings suggestive of liver cirrhosis. Patient also underwent liver biopsy today. The pleural fluid looks more transudative. Patient was also diagnosed to have JU infection from a bronchoscopy last year. He was given treatment for about 4 months and it was stopped. More recently he was reevaluated, and on one of his bone marrow biopsy and this was back in May, his bone marrow biopsy did show some rare AFB, but the AFB culture was negative. He was put back on treatment. Patient has been getting azithromycin, ethambutol, and rifampin. However his been having significant itching, and his LFTs were rising. Patient stated that the rifampin has been put on hold probably in the last 3 weeks. Infectious disease consultation has been requested to evaluate the patient. Review of Systems Constitutional: COMPLAINS OF: Change in appetite Eyes: DENIES: Eye pain Ears, nose, mouth, throat: DENIES: Nasal discharge, Oral lesions, Throat pain, Sinus Pain Respiratory: COMPLAINS OF: Shortness of breath, DENIES: Cough Cardiovascular: COMPLAINS OF: Dyspnea on Exertion, Lower Extremity Edema, DENIES: Chest pain, Palpitations, Syncope Gastrointestinal: COMPLAINS OF: Diarrhea, DENIES: Abdominal pain, Nausea, Vomiting, Difficulty Swallowing Genitourinary: DENIES: Hematuria, Dysuria Musculoskeletal: DENIES: Back pain Integumentary: COMPLAINS OF: Pruritus Neurologic: DENIES: Headache Psychiatric: DENIES: Hallucinations Past Family Social History Allergies: Coded Allergies: peanut (Unverified Allergy, Severe, STOPS BREATHING, 10/18/16) ketorolac (Unverified Allergy, Intermediate, RASH, 10/18/16) codeine (Unverified Adverse Reaction, Mild, Nausea/Vomiting, 10/18/16) Past Medical History Dyslipidemia Nephrolithiasis Thrombocytopenia (08/05/13. Platelet 137.) in 2014 Colonic polyp (07/17/14. 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 CT neck. Adenopathy submandibular, submental , supraclavicular. Two subcentimeter nodule L parotid. L jugulodigastric LN. hyperbilirubinemia Disseminated JU infection Past Surgical History Rhinoplasty Colonoscopy in 2014 Appendectomy in 1990 Tonsillectomy in 1957 Active Ordered Medications Tylenol Benadryl Ethambutol MOM Zofran Rifampin Restoril Valtrex Family History Non-contributory Social History , son lives with him. 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 [employer]. Rare ETOH use, no substance abuse, no smoking. Physical Exam Vital Signs Vital Signs Date Time Temp Pulse Resp B/P (MAP) Pulse Ox O2 Delivery O2 Flow Rate FiO2 11/11/16 10:50 75 18 110/65 (80) 95 11/11/16 10:20 80 18 102/65 (77) 95 11/11/16 10:05 97.8 74 18 103/63 (76) 94 11/11/16 08:00 73 11/11/16 08:00 96.7 73 18 100/62 (75) 93 11/11/16 05:53 99.2 115 16 104/66 94 11/11/16 05:38 100.6 115 17 116/67 93 11/11/16 04:13 100.9 114 18 113/66 (82) 98 11/11/16 00:12 100.2 112 18 120/74 (89) 97 11/10/16 19:33 97.1 83 18 103/64 (77) 96 11/10/16 17:39 98.0 85 18 106/70 (82) 97 11/10/16 17:20 98.0 80 18 106/70 (82) 99 11/10/16 16:23 96.8 86 19 102/65 (77) 96 11/10/16 16:12 11/10/16 15:14 96 19 106/66 (79) 98 Nasal Cannula 2.00 Physical Exam GENERAL: Patient is a well-nourished, well-developed male, awake and alert, not in respiratory distress. Comfortable at rest, sitting up in chair SKIN: Warm and dry. No generalized rash, no ecchymoses and no evidence of embolic lesions. He has jaundice HEAD: Atraumatic. Normocephalic. No temporal wasting, or tenderness. EYES: Lyden conjunctiva. No petechia or hemorrhage. Pupils equal, round and reactive to light. Extraocular movements full and intact. He has scleral icterus. No injection or drainage. EARS, NOSE AND THROAT: Nose without bleeding or purulent nasal discharge. No sinus tenderness. Mucous membranes pink and moist. No oral lesions noted. No exudate. No oral thrush. NECK: Trachea midline. Supple and not tender, no meningeal signs CARDIOVASCULAR: Regular rate and rhythm. No murmurs, rubs or gallops heard RESPIRATORY: Clear to auscultation. Breath sounds equal bilaterally. No rales , wheezing or rhonchi. Decreased at the bases, with decreased vocal fremitus ABDOMEN: Distended, non-tender, bowel sounds present and normoactive. No guarding. No rebound. EXTREMITIES: No clubbing, cyanosis. Has bilateral pitting pedal edema. No calf tenderness. Well perfused and warm. NEUROLOGICAL: Awake and alert. Cranial nerves grossly intact. Motor grossly within normal limits. PSYCHIATRIC: Normal affect, calm and cooperative. LINE: Port L upper chest with no evidence of infection Laboratory Laboratory Tests Test 11/10/16 17:00 11/10/16 18:00 11/11/16 06:27 Pleural Fluid pH 8.5 Pleural Fluid WBC 160 Pleural Fluid RBC 6339 Pleural Fluid Neutrophils 27 Pleural Fluid Lymphocytes 48 Pleural Fluid Monocytes 17 Pleural Fluid Eosinophils 2 Pleural Fluid Basophils 2 Pleural Fluid Total Protein 1.0 Pleural Fluid LDH 77 Pleural Fluid Glucose 92 Prothrombin Time 14.7 Prothromb Time International Ratio 1.3 White Blood Count 6.0 Red Blood Count 2.89 Hemoglobin 9.1 Hematocrit 27.7 Mean Corpuscular Volume 95.9 Mean Corpuscular Hemoglobin 31.4 Mean Corpuscular Hemoglobin Concent 32.8 Red Cell Distribution Width 24.0 Platelet Count 56 Mean Platelet Volume 8.8 CBC Comment AUTO DIFF Differential Total Cells Counted 100 Neutrophils % (Manual) 79 Band Neutrophils % 1 Lymphocytes % 6 Monocytes % 14 Neutrophils # (Manual) 4.8 Nucleated Red Blood Cells 2 Differential Comment FINAL DIFF MANUAL Platelet Estimate LOW Platelet Morphology Comment NORMAL Tear Drop Cells 1+ Ovalocytes 1+ Blood Urea Nitrogen 39 Creatinine 1.20 Random Glucose 98 Calcium Level 9.1 Sodium Level 134 Potassium Level 4.6 Chloride Level 101 Carbon Dioxide Level 24.4 Anion Gap 9 Estimat Glomerular Filtration Rate 61 Lactate Dehydrogenase 338 Total Protein 4.2 Date/Time Source Procedure Growth Status 11/10/16 17:00 Fluid Pleural Fluid Fungal Smear - Final NO FUNGAL ELEMENTS SEEN. Resulted 11/10/16 17:00 Fluid Pleural Fluid Fungal Culture Pending Resulted Result Diagram: 11/11/1662611/11/16 0627 Imaging RADIOLOGY STUDIES/FILMS REVIEWED Liver Biopsy CT 11/11/16 0600 Signed Impressions: Service Date/Time: Friday, November 11, 2016 09:33 - CONCLUSION: Uncomplicated CT guided biopsy. Leonel Brand MD CT Angiography 11/10/16 1238 Signed Impressions: Service Date/Time: October 13:17 - CONCLUSION: 1. No evidence of pulmonary embolism. 2. Small to moderate sized bilateral pleural effusions with adjacent compressive atelectasis. 3. Right axillary lymphadenopathy and mildly enlarged left paraaortic retrocrural lymphadenopathy. 4. Hepatosplenomegaly. 5. Ascites within the upper abdomen. 6. Tiny pericardial effusion. 7. Coronary artery calcifications. Leonel Brand MD Chest X-Ray 11/10/16 1228 Signed Impressions: Service Date/Time: October 12:35 - CONCLUSION: 1. Small bilateral pleural effusions. 2. Bibasilar atelectasis and/or mild infiltrates. 3. Degenerative changes and scoliosis of the thoracolumbar spine. Leonel Brand MD Abdomen/Pelvis CT 11/10/16 1228 Signed Impressions: Service Date/Time: , November 10, 2016 13:17 - CONCLUSION: 1. Moderate sized bilateral pleural effusions. 2. Heterogeneous enhancement of the liver with diffuse ascites suggesting cirrhosis. 3. Abnormal retroperitoneal adenopathy with nodes measuring up to 2.2 cm. These would be concerning for malignancy. 4. Degenerative changes within the spine. Andry Lucero MD Thoracentesis Ultrasound 11/10/16 0000 Signed Impressions: Service Date/Time: , November 10, 2016 16:23 - CONCLUSION: Uncomplicated ultrasound guided thoracentesis. Andry Lucero MD Assessment and Plan Assessment and Plan IMPRESSION Febrile illness, has SOB, which is likely due to vicente pleural effusions, and atelectasis - not localizing anywhere - ?due to his lymphoma - also with diarrhea, R/O C diff or other infectious etiology - has a port Has findings of liver cirrhosis with ascites Thrombocytopenia - ongoing problem felt to be related to chemo, maybe be partly due to his liver disease, has splenomegaly also Lymphoma - last CT with significant adenopathy in retroperitoneum and also in chest/ axilla JU - bronch and BM biopsy - has been on Rx RECOMMENDATION Repeat BC with next fever Check stool Check LFT Continue EMB and Zithromax (Rifampin has been on hold) Add Flagyl Follow C/S Monitor progress Hold off other Abx unless he gets higher fevers - if that happens, start Vanco and Cefepime Will follow along with you Thank you for this consultation Discussed Condition With Explained plan to patient D/W Yolis Manzanares MD Nov 11, 2016 15:18
[2016-11-11] MEDS ORDERED: AZITHROMYCIN 250 MG TAB PO SCH (16:00)
[2016-11-11] MEDS ORDERED: VANCOMYCIN INJ 1,250 MG in SODIUM CHLOR 0.9% 250 ML INJ 250 ML IV SCH (16:00)
--- NOTE | 2016-11-11 17:01 | HHI.PR ---
Subjective Remarks Less SOB from admission. Objective Vitals Vital Signs Date Time Temp Pulse Resp B/P (MAP) Pulse Ox O2 Delivery O2 Flow Rate FiO2 11/11/16 15:11 96.3 85 18 88/64 94 11/11/16 14:55 97.6 85 17 96/62 94 11/11/16 10:50 75 18 110/65 (80) 95 11/11/16 10:20 80 18 102/65 (77) 95 11/11/16 10:05 97.8 74 18 103/63 (76) 94 11/11/16 08:00 73 11/11/16 08:00 96.7 73 18 100/62 (75) 93 11/11/16 05:53 99.2 115 16 104/66 94 11/11/16 05:38 100.6 115 17 116/67 93 11/11/16 04:13 100.9 114 18 113/66 (82) 98 11/11/16 00:12 100.2 112 18 120/74 (89) 97 11/10/16 19:33 97.1 83 18 103/64 (77) 96 11/10/16 17:39 98.0 85 18 106/70 (82) 97 11/10/16 17:20 98.0 80 18 106/70 (82) 99 11/11/16 11/11/16 11/12/16 15:00 23:00 07:00 Intake Total 226 ml Balance 226 ml Platelets 226 ml Result Diagram: 11/11/16 0611/11/16 0627 Imaging Last Impressions Liver Biopsy CT 11/11/16 0600 Signed Impressions: Service Date/Time: Friday, November 11, 2016 09:33 - CONCLUSION: Uncomplicated CT guided biopsy. Leonel Brand MD CT Angiography 11/10/16 1238 Signed Impressions: Service Date/Time: October 13:17 - CONCLUSION: 1. No evidence of pulmonary embolism. 2. Small to moderate sized bilateral pleural effusions with adjacent compressive atelectasis. 3. Right axillary lymphadenopathy and mildly enlarged left paraaortic retrocrural lymphadenopathy. 4. Hepatosplenomegaly. 5. Ascites within the upper abdomen. 6. Tiny pericardial effusion. 7. Coronary artery calcifications. Leonel Brand MD Chest X-Ray 11/10/16 1228 Signed Impressions: Service Date/Time: October 12:35 - CONCLUSION: 1. Small bilateral pleural effusions. 2. Bibasilar atelectasis and/or mild infiltrates. 3. Degenerative changes and scoliosis of the thoracolumbar spine. Leonel Brand MD Abdomen/Pelvis CT 11/10/16 1228 Signed Impressions: Service Date/Time: October 13:17 - CONCLUSION: 1. Moderate sized bilateral pleural effusions. 2. Heterogeneous enhancement of the liver with diffuse ascites suggesting cirrhosis. 3. Abnormal retroperitoneal adenopathy with nodes measuring up to 2.2 cm. These would be concerning for malignancy. 4. Degenerative changes within the spine. Andry Lucero MD Thoracentesis Ultrasound 11/10/16 0000 Signed Impressions: Service Date/Time: , November 10, 2016 16:23 - CONCLUSION: Uncomplicated ultrasound guided thoracentesis. Andry Lucero MD Objective Remarks GENERAL: This is a well-nourished, well-developed patient, in no apparent distress. CARDIOVASCULAR: Regular rate and rhythm without murmurs, gallops, or rubs. RESPIRATORY: Clear to auscultation. Breath sounds equal bilaterally. No wheezes , rales, or rhonchi. GASTROINTESTINAL: Abdomen soft, non-tender, nondistended. Normal active bowel sounds MUSCULOSKELETAL: Extremities without clubbing, cyanosis, or edema. NEURO: Alert & Oriented x4 to person, place, time, situation. Moves all ext x4 A/P Problem List: (1) Pleural effusion ICD Codes: J90 - Pleural effusion, not elsewhere classified Plan: - Left US guided thoracentesis diagnostic and therapeutic (11/10/16) - supplemental oxygen - cardiac telemetry - repeat labs in AM - PT consult - CT angiogram reviewed and reveals: no evidence of PE. Small to moderate- sized bilateral pleural effusions and adjacent compressive atelectasis. Small axillary lymphadenopathy and mildly enlarged left periaortic retrocrural lymphadenopathy. Hepatosplenomegaly. Ascites within the upper abdomen. Tiny pericardial effusion. Coronary artery calcifications - Chest x-ray reviewed and reveals small bilateral pleural effusions. By basilar atelectasis and/or infiltrate. Degenerative changes and scoliosis of the thoracolumbar spine - CT abdomen and pelvis reviewed and reveals moderate-sized bilateral pleural effusions. Heterogeneous enlargement of the liver with diffuse atelectasis suggesting cirrhosis. Abnormal retroperitoneal adenopathy with nodes measuring up to 2.2 cm. Concerning for malignancy - Request right US guided thoracentesis - DVT prophylaxis with SCDs (2) Shortness of breath ICD Codes: R06.02 - Shortness of breath Plan: See above (3) Non-Hodgkin lymphoma ICD Codes: C85.90 - Non-Hodgkin lymphoma, unspecified, unspecified site Plan: See above Patient follows with [facility] as well as Dr. Massey locally last chemotherapy reported one week ago and placed on hold secondary to thrombocytopenia (4) Thrombocytopenia ICD Codes: D69.6 - Thrombocytopenia, unspecified Plan: See above (5) Hyperbilirubinemia ICD Codes: E80.6 - Other disorders of bilirubin metabolism Plan: Chronic has been evaluated by [facility] - case d/w Oncology, Dr. Massey (11/10/16) - liver bx performed (11/11/16) --> results pending (6) Fever ICD Codes: R50.9 - Fever, unspecified Status: Acute Plan: - d/t lymphoma? - comgmt with ID - flagyl, azithromcyin - continue ethambutol - observe Problem Qualifiers (1) Fever: Qualified Codes: R50.9 - Fever, unspecified Fredrick Venegas DO Nov 11, 2016 17:00
[2016-11-11 17:10] LABS: INDIRECT BILIRUBIN 1.3 MG/DL (0.0-0.8); TOTAL BILIRUBIN ADULT 6.5 MG/DL (0.2-1.0)
--- NOTE | 2016-11-11 19:19 | RADRPT ---
EXAM DATE/TIME: 11/11/2016 18:49 [place] COMPARISON: CHEST EXPIRATION ONLY, November 10, 2016, 17:27. INDICATIONS : Post thoracentesis. MEDICAL HISTORY : Classic hodgkins lymphoma. SURGICAL HISTORY : Chest port. ENCOUNTER: Initial ACUITY: 1 day PAIN SCORE: 0/10 LOCATION: Bilateral chest FINDINGS: Decreased pleural effusion on the right, now small. Very small left pleural effusion is unchanged. Th ere is mild bibasilar consolidation. No pneumothorax demonstrated. Heart size stable, within normal limits. Left subclavian [id number]-[id number] catheter again seen, tip in the superior vena cava. CONCLUSION: 1. Decreased right pleural effusion, now small. 2. No significant change left pleural effusion, very small. 3. Mild bibasilar consolidation stable. 4. No pneumothorax. Richy Levy MD on November 11, 2016 at 19:15 Board Certified Radiologist. This report was verified electronically.
[2016-11-11] MEDS ORDERED: PROPOFOL 1000 MG/100 ML INJ 100 ML ONE (21:19)
[2016-11-11] MEDS ORDERED: SODIUM CHLOR 0.9% 1000 ML INJ 1,000 ML IV SCH (21:25)
[2016-11-11] MEDS ORDERED: ACETAMINOPHEN 325 MG TAB PO PRN (21:30)
[2016-11-11] MEDS ORDERED: LACTULOSE SYRUP 20 GM/30 ML CUP PO PRN (21:30)
[2016-11-11] MEDS ORDERED: MIDAZOLAM 100 MG/100 ML INJ 100 ML IV PRN (21:30)
[2016-11-11] MEDS ORDERED: MAGNESIUM HYDROXIDE SUSP 30 ML CUP PO PRN (21:30)
[2016-11-11] MEDS ORDERED: BISACODYL 10 MG SUPP RECTAL PRN (21:30)
[2016-11-11] MEDS ORDERED: SENNOSIDES 8.6 MG TAB PO PRN (21:30)
[2016-11-11] MEDS ORDERED: fentaNYL DRIP 250 ML IV PRN (21:30)
[2016-11-11] MEDS ORDERED: MISCELLANEOUS NURSING INFORMATION XX SCH (21:30)
[2016-11-11] MEDS ORDERED: CHLORHEXIDINE GLUCONATE 2 % 1 PACK (2 CLOTHS) TOP PRN (21:30)
[2016-11-11] MEDS ORDERED: SODIUM CHLORIDE 0.9% FLUSH 10 ML FLUSH IV FLUSH PRN (21:30)
[2016-11-11] MEDS ORDERED: LORazepam 2 MG/ML VIAL IV PUSH PRN (21:30)
[2016-11-11] MEDS ORDERED: RESP: ALBUTEROL 2.5 MG/3 ML NEB (PRN) INH (21:30)
[2016-11-11] MEDS ORDERED: ONDANSETRON HCL 4 MG/2 ML VIAL IV PUSH PRN (21:30)
--- NOTE | 2016-11-11 21:31 | PD.CONS ---
[facility] Service Critical Care Medicine Consult Requested By Dr. Venegas Reason for Consult Status post code Primary Care Physician Non-Staff History of Present Illness 61-year-old male. Date of admission 11/10/2016. Date of admission . Past medical history includes non-Hodgkin's lymphoma/low grade follicular, dyslipidemia, nephrolithiasis, chronic thrombocytopenia, colonic polyps, gastric soft reflux disease anasarca sleep apnea, anemia. He received his chemotherapy at [facility]. He follows with Dr. Massey. Patient really presented to [facility] for worsening dyspnea. Patient has a diagnosis of lymphoma, has been getting chemotherapy. He apparently has had significant thrombocytopenia related to the chemotherapy, and the last time he received treatment was probably about 6-8 weeks ago. His platelet counts have been remaining low. Patient stated that he started getting shortness of breath about 2 weeks ago which was initially with exertion. Patient underwent sided - 400 cc thoracenteses for likely transudative effusions on 11/10 and he has noted significant improvement in his breathing. Since admission patient had a temperature about 100.6. Patient states that he in the past has chronic fever up to 103, but since he's been on the methylprednisolone, his temperatures have been much improved. His been taking steroids in the last 1 month. Patient currently is not neutropenic. He had a CTA of the chest which did not show any pulmonary embolism, but did show evidence of pleural effusion, tiny pericardial effusion, and some significant lymphadenopathy. CT of the abdomen and pelvis showing some findings suggestive of liver cirrhosis, hepatosplenomegaly and ascites with retroperitoneal lymphadenopathy. Patient also underwent liver biopsy today along with a right-sided thoracentesis 700 cc. 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 More recently he was reevaluated, and on one of his bone marrow biopsy in May revealed AFB, but the AFB culture was negative. He was put back on treatment . Patient has been getting azithromycin, ethambutol, and rifampin. However his been having significant pruritus, and his LFTs were rising. Patient stated that the rifampin has been put on hold probably in the last 3 weeks. Today, patient is on the sixth floor post right-sided thoracentesis/liver biopsy. Patient returned to bed about 2029. Approximate 9:00, Telemetry notified RN the patient was tachycardic. Would order investigate patient was becoming bradycardic and unresponsive in the bathroom. [facility] rapid response team was called and patient was returned to his room. Then IMELDA LUCAS was called. Patient received CPR 10 minutes receiving epinephrine, calcium chloride, sodium bicarbonate and was intubated. Return of spontaneous circulation within 10 minutes. Laboratories including CPK, troponin and EKG, CT brain PENDING at time of dictation. Due to non-Hodgkin's lymphoma and thrombocytopenia, not a candidate for targeted temperature monitoring at this time. Patient was starting to arouse off sedation he was started on Versed and fentanyl drips Review of Systems ROS Limitations: Intubated, Altered Mental Status Past Family Social History Allergies: Coded Allergies: peanut (Unverified Allergy, Severe, STOPS BREATHING, 10/18/16) ketorolac (Unverified Allergy, Intermediate, RASH, 10/18/16) codeine (Unverified Adverse Reaction, Mild, Nausea/Vomiting, 10/18/16) Past Medical History Non-Hodgkin's lymphoma/low-grade follicular Dyslipidemia Nephrolithiasis Thrombocytopenia Colonic polyps/sessile Gastroesophageal reflux disease chronic anemia obstructive sleep apnea Past Surgical History Port-A-Cath placement Rhinoplasty Appendectomy TNA Lymph node biopsy Bone marrow biopsy Colonoscopy Reported Medications Rifampin 300 Mg Cap 600 Mg PO DAILY Naprosyn (Naproxen) 500 Mg Tab 500 Mg PO DAILY Ethambutol (Ethambutol HCl) 400 Mg Tab PO DAILY Azithromycin 500 Mg Tab 500 Mg PO DAILY Valacyclovir (Valacyclovir HCl) 500 Mg Tab 500 Mg PO DAILY Active Ordered Medications Reviewed in EMR Family History Mother age 82. Father age 93. Social History Occasional alcohol. Quit tobacco recently. No IV drug use Physical Exam Vital Signs Vital Signs Date Time Temp Pulse Resp B/P (MAP) Pulse Ox O2 Delivery O2 Flow Rate FiO2 11/11/16 19:05 97.9 94 22 113/67 (82) 94 11/11/16 18:52 98.3 20 20 114/71 (85) 97 11/11/16 18:35 97.9 25 20 111/67 (82) 11/11/16 16:00 96.9 93 18 95/64 (74) 97 11/11/16 15:11 96.3 85 18 88/64 94 11/11/16 14:55 97.6 85 17 96/62 94 11/11/16 10:50 75 18 110/65 (80) 95 11/11/16 10:20 80 18 102/65 (77) 95 11/11/16 10:05 97.8 74 18 103/63 (76) 94 11/11/16 08:00 73 11/11/16 08:00 96.7 73 18 100/62 (75) 93 11/11/16 05:53 99.2 115 16 104/66 94 11/11/16 05:38 100.6 115 17 116/67 93 11/11/16 04:13 100.9 114 18 113/66 (82) 98 11/11/16 00:12 100.2 112 18 120/74 (89) 97 Physical Exam GENERAL: This is a 60-year-old male, appears chronically ill currently orotracheally intubated SKIN: Warm and dry. Well perfused no rash HEAD: Atraumatic. Normocephalic. EYES: Eyes are rolling upward. Pupils equal and round about 4 mm bilaterally and reactive. No scleral icterus. No injection or drainage. ENT: No nasal bleeding or discharge. Mucous membranes pink and moist. Oropharynx erythema NECK: Trachea midline. No JVD. CARDIOVASCULAR: Regular rate and rhythm. S1, S2 no S4. RESPIRATORY: Diminished breath sounds in bases bilaterally. Few scattered crackles. No wheezing GASTROINTESTINAL: Abdomen soft, non-tender, With. Hypoactive bowel sounds appreciated. MUSCULOSKELETAL: Extremities without any significant peripheral edema. No obvious deformities. NEUROLOGICAL: Cranial nerves II-12 grossly intact. Positive gag. Positive corneal reflex. Withdraws to pain in all 4 extremities. Patient is currently posturing decerebrate Laboratory Laboratory Tests Test 11/11/16 06:27 White Blood Count 6.0 Red Blood Count 2.89 Hemoglobin 9.1 Hematocrit 27.7 Mean Corpuscular Volume 95.9 Mean Corpuscular Hemoglobin 31.4 Mean Corpuscular Hemoglobin Concent 32.8 Red Cell Distribution Width 24.0 Platelet Count 56 Mean Platelet Volume 8.8 CBC Comment AUTO DIFF Differential Total Cells Counted 100 Neutrophils % (Manual) 79 Band Neutrophils % 1 Lymphocytes % 6 Monocytes % 14 Neutrophils # (Manual) 4.8 Nucleated Red Blood Cells 2 Differential Comment FINAL DIFF MANUAL Platelet Estimate LOW Platelet Morphology Comment NORMAL Tear Drop Cells 1+ Ovalocytes 1+ Blood Urea Nitrogen 39 Creatinine 1.20 Random Glucose 98 Calcium Level 9.1 Sodium Level 134 Potassium Level 4.6 Chloride Level 101 Carbon Dioxide Level 24.4 Anion Gap 9 Estimat Glomerular Filtration Rate 61 Total Bilirubin 6.5 Direct Bilirubin 5.2 Indirect Bilirubin 1.3 Aspartate Amino Transf (AST/SGOT) 60 Alanine Aminotransferase (ALT/SGPT) 46 Alkaline Phosphatase 518 Lactate Dehydrogenase 338 Total Protein 4.1 Albumin 2.1 Date/Time Source Procedure Growth Status 11/10/16 17:00 Fluid Pleural Fluid Fungal Smear - Final NO FUNGAL ELEMENTS SEEN. Resulted 11/10/16 17:00 Fluid Pleural Fluid Fungal Culture Pending Resulted Result Diagram: 11/11/1662611/11/16626 Imaging Last Impressions Liver Biopsy CT 11/11/16 0600 Signed Impressions: Service Date/Time: Friday, November 11, 2016 09:33 - CONCLUSION: Uncomplicated CT guided biopsy. Leonel rBand MD Chest X-Ray 11/11/16 0000 Signed Impressions: Service Date/Time: Friday, November 11, 2016 18:49 - CONCLUSION: 1. Decreased right pleural effusion, now small. 2. No significant change left pleural effusion, very small. 3. Mild bibasilar consolidation stable. 4. No pneumothorax. Richy Levy MD CT Angiography 11/10/16 1238 Signed Impressions: Service Date/Time: October 13:17 - CONCLUSION: 1. No evidence of pulmonary embolism. 2. Small to moderate sized bilateral pleural effusions with adjacent compressive atelectasis. 3. Right axillary lymphadenopathy and mildly enlarged left paraaortic retrocrural lymphadenopathy. 4. Hepatosplenomegaly. 5. Ascites within the upper abdomen. 6. Tiny pericardial effusion. 7. Coronary artery calcifications. Leonel Brand MD Abdomen/Pelvis CT 11/10/16 1228 Signed Impressions: Service Date/Time: October 13:17 - CONCLUSION: 1. Moderate sized bilateral pleural effusions. 2. Heterogeneous enhancement of the liver with diffuse ascites suggesting cirrhosis. 3. Abnormal retroperitoneal adenopathy with nodes measuring up to 2.2 cm. These would be concerning for malignancy. 4. Degenerative changes within the spine. Andry Lucero MD Thoracentesis Ultrasound 11/10/16 0000 Signed Impressions: Service Date/Time: October 16:23 - CONCLUSION: Uncomplicated ultrasound guided thoracentesis. Andry Lucero MD Assessment and Plan Assessment and Plan Neuro/Psych: Acute altered mental status secondary to hypoxiaanoxia rule out hyperammonia/ toxic metabolic encephalopathy Patient is currently on midazolam/fentanyl drips for sedation/analgesia while intubated No propofol secondary to peanut allergy Goal of RA SS -[address] brain in light of thrombocytopenia currently pending at time of dictation EEG will be ordered Possibly with anoxic encephalopathy Ammonia level elevated 92 CV: Status post cardiac pulmonary arrest possibly respiratory induced Shock possibly cardiogenic History of dyslipidemia Status post 1 L normal saline Supportive care of norepinephrine drip to maintain MAP > 65 2-D echocardiogram ordered Cycle troponins and lactate Initial troponin 0.08. No signs of ST elevation on telemetry EKG ordered Resp: Acute hypoxemic respiratory failure Bilateral pleural effusions - transudative by light's criteria History of BE Status post thoracentesis 11/10 - 400 cc sanguinous Tobaccoism PRVC 16/500/1/5/100% Ventilator bundle Albuterol/ipratropium every 4 hours of albuterol every 2 hours. Dyspnea Spontaneous breathing trials when clinically indicated Follow-up chest x-ray/ABG post intubation revealed significant acidosis and [id number] right pleural effusion CT PA - No evidence of pulmonary embolism. Small to moderate sized bilateral pleural effusions with adjacent compressive atelectasis. Right axillary lymphadenopathy and mildly enlarged left paraaortic retrocrural lymphadenopathy. Hepatosplenomegaly. Ascites within the upper abdomen. Tiny pericardial effusion. Coronary artery calcifications. GI: Elevated transaminases - possibly drug-induced with conjugated bilirubin elevation Status post liver biopsy History of colonic polyp - sessile Gastroesophageal reflux disease Cholelithiasis Patient NPO NGT LIWS Pantoprazole twice a day for GI prophylaxis Altagracia-Colace for bowel regimen GI consultation Follow-up liver biopsy : History of nephrolithiasis Almaguer catheter to be placed for accurate I's and O's in a critically ill patient Endo: Sliding-scale insulin with Accu-Cheks to maintain euglycemia/low regimen with Novulin R every 6 hours Renal: Creatinine currently within normal limits Monitor urine output Accurate I's and O's Heme: Non-Hodgkin's lymphoma follicular type now progressed a Hodgkin lymphoma Thrombocytopenia Normocytic anemia - acute blood loss Rapid transfusion with 4 PRBC, 2 FFP 1 platelet Iron notify for possible normalization. CT and/pelvis pending Patient is currently not receiving chemotherapy actively. Patient with significant retroperitoneal lymphadenopathy as above. Including right axilla and periaortic lymph nodes Follow CBC daily. Follow trends ID: [id number] ? HSV Currently on azithromycin, ethambutol and valacyclovir. Rifampin discontinued secondary to elevated transaminases Vancomycin started by primary team Blood cultures 2, sputum and urine all pending Infectious disease following MSK: PT evaluate and treat FEN: Replace electrolytes as clinically indicated Access - Utilize peripheral IV. Patient left Port-A-Cath we'll utilize with Estes needle Prophylaxis - GI - pantoprazole - DVT - SCD/holding pharmacological prophylaxis in light of thrombocytopenia Critical Care: The total critical care time was 35 minutes. Time to perform other separately billable procedures was not included in the critical care time. Bedside also performed revealed gross ascites. Patient also has right pleural effusion Differential includes possible bleeding from liver biopsy with thrombus cytopenia/elevated PTT and low fibrinogen. Patient also has right pleural effusion status post thoracentesis. Spoke with Dr. Meneses. Plan for stat CT abdomen/pelvis and he will be activating the IR team for possible embolization. Cordis place with femoral arterial line. 4 PRBC, 1 FFP and one platelets to be given now. Hemoglobin was 9 this a.m. currently 5. PTT was elevated greater than 277. Fibrinogen 93. Received 2 cryoprecipitate and 1 g TX a Patient was on norepinephrine, Mk-Synephrine and vasopressin drips and started on bicarbonate drip due to acidosis. Hemoglobin did rise to 8 after transfusion. Lactate was 15. In CAT scan, patient noted at the significant evolving right hemothorax. Chest tube was placed with 2 L output. Despite maximal medical therapy patient went to PEA arrest. Patient coated with chest compression. Received epinephrine, sodium bicarbonate and calcium chloride remained on Mk-Synephrine, Levophed and vasopressin drips. Code time approximate 20 minutes. Time of 0119. Patient was adequately fluid resuscitated. No obvious source of coagulopathy except underlying liver failure which may have progressed secondary to code. No obvious source of D bowing on echocardiogram short axis parasternal view. No source of RV strain and recent negative CT angiogram chest. No significant pericardial effusion subxiphoid view. Abdomen did reveal gross ascites. Ultrasound chest revealed pleural effusion. No previous PTT ordered. CT brain essentially ruled out neurological causes. Troponin 0.[address] elevations no significant pericardial effusion invoking tamponade. Unlikely pulmonary embolism not a candidate for antithrombotic secondary to elevated PTT low fibrinogen Code Status Full code Discussed Condition With MMI TEACHER. No family available immediately. Care plan discussed all questions answered. Joni Diaz MD Nov 11, 2016 21:31
--- NOTE | 2016-11-11 21:33 | PD.PROCEDR ---
Procedure Note Procedure CODE BLUE note Arrived on scene patient unresponsive undergoing CPR. Patient became bradycardic on telemetry was found in bathroom unresponsive for unknown duration time. Patient was hypoxic. Patient was placed on bed in CPR was initiated. Patient received 2 mg epinephrine, one ampule sodium bicarbonate 1 g calcium chloride. Patient was intubated with ROSC after approximately 5 minutes. Joni Diaz MD Nov 11, 2016 21:33
--- NOTE | 2016-11-11 21:35 | PD.PROCEDR ---
Procedure Note Procedure DATE: 11/11/2016 PROCEDURE: Orotracheal intubation INDICATION: CODE BLUE DETAILS OF PROCEDURE The patient was placed in optimal position and preoxygenated with 100% FiO2 via bag valve mask. At the start oxygen saturation was unknown as not picking up upon saturation monitor. The patient was administered no medications. I entered the oropharynx with a size 3 Salazar laryngoscope blade and obtained a grade 3 view of the airway. On single attempt a size 8.0 cuffed endotracheal tube was passed through the vocal cords. Correct tube location was confirmed with end tidal CO2 detector and by auscultating over bilateral lung fernández.. However, he did slip out of. Patient was sagittally 65%. I reentered the oropharynx with a #4 Ilda blade. Obtained a grade 3 view of the airway. On single dose of an 8.0 ET tube cuff tube was passed through the vocal cords. Confirmed with end tidal CO2 monitor nonsustained over bilateral lungs. The endotracheal tube was secured with adhesive tape at a depth of 24 cm at the lips. The patient was connected to the ventilator. The patient tolerated the procedure well without any apparent complications. Oxygen saturations were at 100 %, transfer. STAT chest x-ray pending. Joni Diaz MD Nov 11, 2016 21:35
[2016-11-11] MEDS ORDERED: NOREPINEPHRINE INJ 4 MG in SODIUM CHLOR 0.9% 250 ML INJ 246 ML IV PRN (21:45)
[2016-11-11] MEDS ORDERED: TERBUTALINE INJ 1 MG/ML AMP SQ PRN ×2 (21:45→23:00)
[2016-11-11] MEDS ORDERED: SODIUM CHLOR 0.9% 1000 ML INJ 1,000 ML IV ONE (21:45)
[2016-11-11] MEDS ORDERED: metroNIDAZOLE 500 MG TAB PO SCH (22:00)
--- NOTE | 2016-11-11 22:17 | RADRPT ---
EXAM DATE/TIME: 11/11/2016 21:47 [facility] COMPARISON: CHEST EXPIRATION ONLY, November 11, 2016, 18:49. INDICATIONS : Respiratory Failure MEDICAL HISTORY : Hodgkin's lymphoma.appendectomy. SURGICAL HISTORY : Chest Port, Thoracentesis. ENCOUNTER: Subsequent ACUITY: 2 days PAIN SCORE: Non-responsive. LOCATION: Bilateral chest FINDINGS: Right pleural effusion appears to be redeveloping, small to moderate. There is increased fairly diffu se consolidation of the right lung. Patchy air space opacities are developing of the left lung, espec ially the upper lobe. Tiny left pleural effusion is not significantly changed. I don't see a pneumothorax. Heart size stable, within normal limits. Patient is now intubated. Endotracheal tube tip is approximately 3 cm above the randy. There is a na sogastric tube coursing into the stomach. Unchanged left subclavian Eyccaz-m-Nefw catheter with tip i n the superior vena cava. CONCLUSION: 1. Interim intubation and nasogastric tube placement as above. 2. Small to moderate right pleural effusion, slightly larger in the interim. No definite pneumothorax . 3. Diffuse right and patchy, mostly upper lobe pulmonary opacities worsening. Richy Levy MD on November 11, 2016 at 22:13 Board Certified Radiologist. This report was verified electronically.
[2016-11-11] MEDS ORDERED: PHENYLEPHRINE HCL 10 MG/ML VIAL ONE (22:29)
[2016-11-11] MEDS ORDERED: GLUCAGON 1 MG/ML VIAL OTHER PRN (22:30)
[2016-11-11] MEDS ORDERED: DEXTROSE 50% IN WATER 50 ML VIAL(D50) IV PRN (22:30)
[2016-11-11 22:51] LABS: BLOOD GAS BASE EXCESS -16.8 mmol/L (-2-2); BLOOD GAS CARBOXYHEMOGLOBIN 1.8 % (0-4); BLOOD GAS HCO3 11 mmol/L (22-26); BLOOD GAS METHEMOGLOBIN 0.9 % (0-2); BLOOD GAS O2 HGB SATURATION 96 % (90-100); BLOOD GAS OXYGEN CONTENT 7.4 Vol % (12.0-20.0); BLOOD GAS PCO2 33 mmHg (38-42); BLOOD GAS PO2 162 mmHg (61-120); BLOOD GAS TOTAL HGB 5.2 G/DL (12.0-16.0); CRITICAL VALUE YES; DRAW SITE LT FEMORAL; FIO2 100 %; NUMBER OF ARTERIAL PUNCTURES 1; OXYGEN DEVICE VENTILATOR; STAT NO; TEMP CORR TO 98.6; ULNAR PULSE PRESENT; VENT SETTINGS 18/550/+8
[2016-11-11] MEDS ORDERED: PHENYLEPHRINE 40 MG in D5W 500 ML IV PRN (23:00)
[2016-11-11] MEDS ORDERED: SODIUM BICARBONATE 8.4% INJ 50 MEQ/50 ML SYR ONE (23:07)
[2016-11-11] MEDS ORDERED: SODIUM BICARBONATE 8.4% INJ 50 MEQ/50 ML SYR IV SCH (23:15)
--- NOTE | 2016-11-11 23:27 | PD.PROCEDR ---
Central Line Procedure REASON FOR PROCEDURE Central venous access PROCEDURE PERFORMED Central line placement: Right femoral vein CONSENT Informed consent for procedure was obtained emergently due to active bleeding with hemoglobin of 5 requiring massive transfusion. The risks and benefits of the procedure were discussed to include but limited to bleeding, clot formation , infection, and even . ANESTHESIA Local injection of 1% Lidocaine DESCRIPTION OF THE PROCEDURE The patient was placed in supine, mild Trendelenburg position. The area was exposed and cleansed with ChloraPrep, times two. Large sterile drape was used to cover the patient, with the site exposed, under sterile conditions including cap, face mask, sterile gown, and sterile gloves. On single attempt, the introducer needle was inserted with negative pressure in syringe and venous flash was obtained. The guide wire was then advanced without any restriction and the needle was removed. The dilator was used without any complications. Using Seldinger technique the 8.5 Slovak 10 cm catheter was advanced over the guide wire to a depth of 10 centimeters. The guide wire was removed. All ports were aspirated with dark venous blood return and flushed easily with sterile saline. All ports were capped. Antibiotic disc was placed around central line at puncture site. The central line was secured to the skin with two interrupted 2.0 silk sutures. The area was bandaged with sterile see- through central line bandage. RADIOLOGICAL DATA Ultrasound guidance was used to locate right femoral vein. Doppler/color flow was used to confirm venous flow. COMPLICATIONS: No apparent complications ESTIMATED BLOOD LOSS: Less than 1 cc. Joni Diaz MD Nov 11, 2016 23:27
--- NOTE | 2016-11-11 23:27 | PD.PROCEDR ---
Procedure Note Procedure DATE: 11/11/2016 PROCEDURE: Right femoral arterial catheter placement INDICATION: Hemodynamic access DETAILS OF PROCEDURE The patient was placed in supine position. The skin was cleansed with Chloraprep. Additional barrier precautions included large sterile drape, sterile gloves, sterile gown, face mask, and hat. 1% lidocaine was used for local anesthesia. Under direct ultrasound guidance and on the initial attempt, the artery was accessed with an introducer needle. The guide wire was advanced. Using Seldinger technique 20 gauge arterial catheter was placed. The guide wire was removed. The catheter was connected to a transducer line and flushed with saline. The video monitor displayed normal arterial wave forms. The catheter was secured with 2-0 silk. A sterile dressing with antibiotic disc was applied. ESTIMATED BLOOD LOSS: minimal COMPLICATIONS: None Joni Diaz MD Nov 11, 2016 23:27
[2016-11-11] MEDS ORDERED: SODIUM BICARBONATE 8.4% INJ 150 MEQ in WATER STERILE FOR INJ 850 ML IV SCH (23:30)
[2016-11-11 23:39] LABS: MEAN CELL VOLUME 107.9 FL (80.0-100.0); MEAN CORPUSCULAR HEMOGLOBIN 32.1 PG (27.0-34.0); PLATELET COUNT 52 TH/MM3 (150-450); RED BLOOD COUNT 1.68 MIL/MM3 (4.50-5.90); RED CELL DISTRIBUTION WIDTH 24.3 % (11.6-17.2)
[2016-11-11 23:43] LABS: MEAN CORPUSCULAR HGB CONC 29.7 % (32.0-36.0)
[2016-11-11] MEDS ORDERED: SODIUM BICARBONATE 8.4% INJ 100 ML ONE (23:46)
[2016-11-11 23:47] LABS: HEMATOCRIT 18.1 % (39.0-51.0); REVIEW FLAG FINAL
[2016-11-12] VITALS: BP 113/64; PULSE 104; RESP 22; TEMP 96.6; O2SAT 100
[2016-11-12] LABS: BICARBONATE 13.9 MEQ/L (21.0-32.0); MAGNESIUM 2.8 MG/DL (1.5-2.5); POTASSIUM 5.4 MEQ/L (3.5-5.1)
[2016-11-12] MEDS ORDERED: RESP: ALBUTEROL 2.5 MG/IPRATROPIUM 0.5 MG NEB (SCH) INH
[2016-11-12] MEDS ORDERED: INSULIN NovoLIN REGULAR SUPPLEMENTAL SCALE SQ SCH
[2016-11-12 00:04] LABS: BLOOD GAS BASE EXCESS -10.5 mmol/L (-2-2); BLOOD GAS CARBOXYHEMOGLOBIN 0.9 % (0-4); BLOOD GAS HCO3 17 mmol/L (22-26); BLOOD GAS METHEMOGLOBIN 0.7 % (0-2); BLOOD GAS O2 HGB SATURATION 98 % (90-100); BLOOD GAS OXYGEN CONTENT 12.5 Vol % (12.0-20.0); BLOOD GAS PCO2 51 mmHg (38-42); BLOOD GAS PO2 322 mmHg (61-120); BLOOD GAS TOTAL HGB 8.5 G/DL (12.0-16.0); CRITICAL VALUE YES; DRAW SITE ALINE; FIO2 100 %; OXYGEN DEVICE VENTILATOR; STAT NO; TEMP CORR TO 98.6; ULNAR PULSE PRESENT; VENT SETTINGS AC18/500/+8
[2016-11-12 00:10] LABS: INTERNATIONAL NORMALIZED RATIO 1.9 RATIO
[2016-11-12 00:12] LABS: APTT (PATIENT) GREATER THAN 277.5 SEC (24.3-30.1)
[2016-11-12 00:23] LABS: FIBRINOGEN 92 mg/dL (227-377)
[2016-11-12] MEDS ORDERED: VASOPRESSIN 20 UNITS/ML VIAL (IVTITR) ONE (00:23)
[2016-11-12 00:40] VITALS: O2SAT 100
[2016-11-12] MEDS ORDERED: TRANEXAMIC ACID INJ 1,000 MG in SODIUM CHLORIDE 0.9% INJ 100 ML IV ONE (01:00)
[2016-11-12] MEDS ORDERED: TRANEXAMIC ACID INJ 1,000 MG/10 ML AMP ONE (01:20)
--- NOTE | 2016-11-12 01:27 | RADRPT ---
EXAM DATE/TIME: 11/11/2016 17:35 [facility] COMPARISON: US GUIDED THORACENTESIS LEFT, November 10, 2016, 16:23. INDICATIONS : Right pleural effusion. MEDICAL HISTORY : Tinnitis. Hodgkins lymphoma. Gallstones. Chemotherapy. SURGICAL HISTORY : Tonsillectomy. Appendectomy. Bilateral nasalplasty. Left chest port. ENCOUNTER: Subsequent ACUITY: 2 weeks PAIN SCORE: 2/10 LOCATION: Right chest FLUID: Total volume of 700 cc of clear, yellow fluid was removed. Fluid was discarded. Thoracentesis was therapeutic only. TECHNIQUE: 1. Ultrasound guidance for thoracentesis. 2. Thoracentesis. The risks, benefits, and alternatives to ultrasound guided thoracentesis were explained to the patien t in lay simple terms, including the risk of bleeding and infection. Written and verbal informed con sent was obtained. Appropriate area for thoracentesis was marked under ultrasound guidance with the patient in the uprig ht position. Overlying skin was prepped and draped in the usual sterile fashion and with local anest hetic, a dermatotomy was made with an 11 blade scalpel. A 6 Gambian thoracentesis catheter was placed in the pleural space and fluid was removed. Catheter was then removed and a sterile dressing applie d. There were no immediate complications. The patient tolerated the procedure well and the left the ultrasound suite in stable condition. Chest radiograph is to be obtained. CONCLUSION: Uncomplicated ultrasound guided thoracentesis. Andry Lucero MD on November 12, 2016 at 1:24 Board Certified Radiologist. This report was verified electronically.
--- NOTE | 2016-11-12 02:04 | RADRPT ---
EXAM DATE/TIME: 11/12/2016 00:41 [facility] COMPARISON: CT NEEDLE BIOPSY LIVER, November 11, 2016, 9:33. INDICATIONS : Decreased hemoglobin. Evaluate for bleeding ORAL CONTRAST: No oral contrast ingested. RADIATION DOSE: 11.29 CTDIvol (mGy) MEDICAL HISTORY : Lymphoma. SURGICAL HISTORY : Appendectomy. ENCOUNTER: Initial ACUITY: 1 day PAIN SCALE: Non-responsive LOCATION: abdomen TECHNIQUE: Volumetric scanning of the abdomen and pelvis was performed. Using automated exposure control and ad justment of the mA and/or kV according to patient size, radiation dose was kept as low as reasonably achievable to obtain optimal diagnostic quality images. DICOM format image data is available electro nically for review and comparison. FINDINGS: LOWER LUNGS: Bilateral pleural effusions, right greater than left. Right-sided effusion is slightly more dense wit h a hematocrit level. Concomitant atelectatic changes bilaterally. Leftward displacement of the media stinal structures. LIVER: Liver is small and nodular suggesting some degree of cirrhosis. There is air in the nondependent port ions of the periatrial which may be related to the recent intervention. Slight increase in the perito alma rosa ascites when compared to the examination earlier today. SPLEEN: Normal size without lesion. PANCREAS: Within normal limits. KIDNEYS: Posterior is an enhancement in both kidneys, right greater than left may represent early ATN. ADRENAL GLANDS: Within normal limits. VASCULAR: There is no aortic aneurysm. BOWEL/MESENTERY: The stomach, small bowel, and colon demonstrate no acute abnormality. There is no free intraperitone al air or fluid. ABDOMINAL WALL: Generalized anasarca. RETROPERITONEUM: There is no lymphadenopathy. BLADDER: No wall thickening or mass. REPRODUCTIVE: Within normal limits. INGUINAL: There is no lymphadenopathy or hernia. MUSCULOSKELETAL: Within normal limits for patient age. CONCLUSION: 1. Large right pleural effusion with suggestion of some leftward displacement of mediastinal structur es. Fluid is somewhat dense with a hematocrit level characteristic of a bloody component. 2. Air in the nondependent portion of the biliary tree. Findings are nonspecific and may be related t o the recent intervention. 3. No ascites is slightly more prominent compared to the prior. 4. Generalized anasarca. 5. Patchy enhancement of the renal parenchyma possibly representing early ATN. Unruly Meneses MD on November 12, 2016 at 1:55 Board Certified Radiologist. This report was verified electronically.
--- NOTE | 2016-11-12 02:11 | RADRPT ---
EXAM DATE/TIME: 11/12/2016 00:41 [facility] COMPARISON: No previous studies available for comparison. INDICATIONS : Altered mental status. RADIATION DOSE: 56.35 CTDIvol (mGy) MEDICAL HISTORY : Non-responsive. SURGICAL HISTORY : Non-responsive. ENCOUNTER: Subsequent ACUITY: 1 week PAIN SCALE: Non-responsive LOCATION: cranial TECHNIQUE: Multiple contiguous axial images were obtained of the head. Using automated exposure control and adj ustment of the mA and/or kV according to patient size, radiation dose was kept as low as reasonably a chievable to obtain optimal diagnostic quality images. DICOM format image data is available electro nically for review and comparison. FINDINGS: Anatomic detail is limited due to beam hardening artifact from adjacent hardware. Patient is also can og in the scanner. CEREBRUM: The ventricles are normal for age. No evidence of midline shift, mass lesion, hemorrhage or acute in farction. No extra-axial fluid collections are seen. POSTERIOR FOSSA: The cerebellum and brainstem are intact. The 4th ventricle is midline. The cerebellopontine angle i s unremarkable. EXTRACRANIAL: The visualized portion of the orbits is intact. Large amount of fluid/debris in the nasal passages an d nasopharynx bilaterally possibly related to recent intubation SKULL: The calvaria is intact. No evidence of skull fracture. CONCLUSION: 1. Limited examination due to regional beam hardening artifact and head positioning in the scanner. 2. No obvious acute intracranial process. 3. Mixed density fluid and debris in the nasal passages and nasopharynx are likely related to recent intubation. Unruly Meneses MD on November 12, 2016 at 2:07 Board Certified Radiologist. This report was verified electronically.
--- NOTE | 2016-11-12 02:11 | DEATH SUM ---
Pronouncement Date Pronounced : Nov 12, 2016 Time Of : 01:19 Pronouncement Called to pronounce of patient. Identified patient as Jaime Ball with wrist band MR# [id number]. Patient with no cardiac activity in 2 separate leads and no palpable/auscible cardiac activity. Patient with no spontaneous respirations, no corneal reflex or response to painful stimuli. Pupils fixed and dilated. Preliminary Cause of : Multi Organ Failure Joni Diaz MD Nov 12, 2016 02:11
--- NOTE | 2016-11-12 02:23 | RADRPT ---
EXAM DATE/TIME: 11/12/2016 00:50 INDICATIONS : Right pleural fluid DEVICE(S): 2.) 12 Fr Aleksandar FLUID: Total volume cl9013 cc of red fluid was r removed. Fluid was discarded. MEDICAL HISTORY : Lymphoma. SURGICAL HISTORY : Appendectomy. ENCOUNTER: Not applicable ACUITY: Not applicable PAIN SCORE: Not applicable LOCATION: Right chest PROCEDURE : 1. CT guided chest tube placement. 2. Conscious sedation with continuous EKG and oximetry monitoring. The patient is a 61-year-old who arrived at the CT scanner after having been found down and bradycard ic. The patient was coded on the floor prior to the arrival in the CT scan suite and was actively cod ing while on the table. The patient was notably coagulopathic upon arrival. CT imaging of the abdomen and pelvis was performed. The patient was noted to have a large amount of fluid in the right chest w ith mediastinal shift. Consent was deemed emergent. A suitable site was localized using CT guidance. The site was prepped in sterile fashion. Full steri le technique was used, including cap, mask, sterile gloves and gown and a large sterile sheet. Hand hygiene and 2% chlorhexidine and/or betadine/alcohol prep was utilized per protocol for cutaneous ant isepsis. The skin and subcutaneous tissues were infiltrated with local anesthetic solution. Using a utomated exposure control and adjustment of the mA and/or kV according to patient size, radiation dos e was kept as low as reasonably achievable to obtain optimal diagnostic quality images. DICOM format image data is available electronically for review and comparison. With CT guidance the chest was punctured and a 12 Turkmen catheter was placed using a mid axillary armani grove. The catheter was placed first to bottle suction drainage then to Pleur-evac drainage. A total of approximately 1.6 L of acute hemorrhage was removed. No postprocedure imaging was performed as the code was called approximately 10-15 minutes post chest tube placement. CONCLUSION: Emergent chest tube placement as above. Approximately 1.6 L of acute hemorrhage was removed. Andry Lucero MD on November 12, 2016 at 2:01 Board Certified Radiologist. This report was verified electronically.
[2016-11-12] MEDS ORDERED: CHLORHEXIDINE GLUCONATE 2 % 1 PACK (2 CLOTHS) TOP SCH (04:00)
[2016-11-12] MEDS ORDERED: SODIUM BICARBONATE 8.4% INJ 50 MEQ/50 ML SYR IV ONE ×2 (04:15→06:34)
[2016-11-12] MEDS ORDERED: EPINEPHrine HCL (1:10,000) 1 MG/10 ML SYRINGE IV ONE (06:34)
[2016-11-12] MEDS ORDERED: NOREPINEPHRINE 4 MG/4 ML AMP IV ONE (06:34)
[2016-11-12] MEDS ORDERED: CALCIUM CHLORIDE 10% SOLN 1 GRAM/10 ML SYR IV ONE (06:34)
[2016-11-12] MEDS ORDERED: CHLORHEXIDINE 0.12% (ORAL KIT) 15 ML CUP MT SCH (08:00)
[2016-11-12] MEDS ORDERED: PANTOPRAZOLE SODIUM 40 MG VIAL IV PUSH SCH ×2 (09:00)
[2016-11-12] MEDS ORDERED: levETIRAcetam INJ 500 MG in SODIUM CHLORIDE 0.9% INJ 100 ML IV SCH (09:00)
[2016-11-12] MEDS ORDERED: SODIUM CHLORIDE 0.9% FLUSH 10 ML FLUSH IV FLUSH SCH (09:00)
[2016-11-12] MEDS ORDERED: ARTIFICIAL TEARS OPTH SOLN 15 ML BTL EACH EYE SCH (09:00)
[2016-11-12] MEDS ORDERED: DOCUSATE SODIUM 50 MG/SENNA 8.6 MG TAB PO SCH (09:00)
--- NOTE | 2016-11-13 08:32 | HHI.DS ---
Discharge Summary Admission Date Nov 10, 2016 at 15:31 Discharge Date: Nov 12, 2016 Admitting Diagnosis Bilat Pleural Effusions; Dyspnea; Hyperbilirubinemia; Thrombocytopen (1) Pleural effusion ICD Codes: J90 - Pleural effusion, not elsewhere classified (2) Shortness of breath ICD Codes: R06.02 - Shortness of breath (3) Non-Hodgkin lymphoma ICD Codes: C85.90 - Non-Hodgkin lymphoma, unspecified, unspecified site (4) Thrombocytopenia ICD Codes: D69.6 - Thrombocytopenia, unspecified (5) Hyperbilirubinemia ICD Codes: E80.6 - Other disorders of bilirubin metabolism Consultants Interventional radiology Dr. Lucero Infectious disease Dr. Lazcano [employer] Dr. Diaz Procedures 11/10/16 US guided left thoracentesis [address] Lucero 11/11/16 US guided right thoracentesis [address] Lucero 11/11/[address] Brand right sided chest tube placement Dr. Lucero Brief History The patient is a 61 years male patient old with a past medical history Non Hodgkin lymphoma, thrombocytopenia, dyslipidemia, nephrolithiasis, hyperbilirubinemia and non mycobacterium disseminated TB. Patient has a history of lymphoma (non-Hodgkin's and follows at the [facility]. He also follows with Dr. Massey.) He reports his last chemotherapy was a weeks ago. He stopped undergoing chemotherapy due to thrombocytopenia. Patient presented to the ER with a complaint of shortness of breath for the past few days. Shortness of breath worse with exertion. Denies chest pain. Patient also endorses generalized abdominal swelling and a bloating sensation much worse after eating even a small amount of food. Patient denies fever or chills. CBC/BMP: 11/11/16 2244 11/11/16 2244 Significant Findings Laboratory Tests Test 11/10/16 17:00 11/10/16 18:00 11/11/16 06:27 11/11/16 22:15 Pleural Fluid WBC 160 /MM3 (0-10) Pleural Fluid RBC 6339 /MM3 (0-0) Prothrombin Time 14.7 SEC (9.8-11.6) Red Blood Count 2.89 MIL/MM3 (4.50-5.90) Hemoglobin 9.1 GM/DL (13.0-17.0) Hematocrit 27.7 % (39.0-51.0) Red Cell Distribution Width 24.0 % (11.6-17.2) Platelet Count 56 TH/MM3 (150-450) Neutrophils % (Manual) 79 % (16-70) Lymphocytes % 6 % (9-44) Monocytes % 14 % (0-8) Nucleated Red Blood Cells 2 /100 WBC (0-0) Platelet Estimate LOW (NORMAL) Tear Drop Cells 1+ (NORMAL) Ovalocytes 1+ (NORMAL) Blood Urea Nitrogen 39 MG/DL (7-18) Sodium Level 134 MEQ/L (136-145) Estimat Glomerular Filtration Rate 61 ML/MIN (>89) Total Bilirubin 6.5 MG/DL (0.2-1.0) Direct Bilirubin 5.2 MG/DL (0.0-0.2) Indirect Bilirubin 1.3 MG/DL (0.0-0.8) Aspartate Amino Transf (AST/SGOT) 60 U/L (15-37) Alkaline Phosphatase 518 U/L (45-117) Lactate Dehydrogenase 338 U/L (87-241) Total Protein 4.1 GM/DL (6.4-8.2) Albumin 2.1 GM/DL (3.4-5.0) Test 11/11/16 22:40 11/11/16 22:44 11/12/16 00:00 Blood Gas HCO3 11 mmol/L (22-26) 17 mmol/L (22-26) Blood Gas Base Excess -16.8 mmol/L (-2-2) -10.5 mmol/L (-2-2) Arterial Blood pH 7.13 (7.380-7.420) 7.15 (7.380-7.420) Arterial Blood Partial Pressure CO2 33 mmHg (38-42) 51 mmHg (38-42) Arterial Blood Partial Pressure O2 162 mmHg (61-120) 322 mmHg (61-120) Arterial Blood Oxygen Content 7.4 Vol % (12.0-20.0) Blood Gas Hemoglobin 5.2 G/DL (12.0-16.0) 8.5 G/DL (12.0-16.0) White Blood Count 13.0 TH/MM3 (4.0-11.0) Red Blood Count 1.68 MIL/MM3 (4.50-5.90) Hemoglobin 5.4 GM/DL (13.0-17.0) Hematocrit 18.1 % (39.0-51.0) Mean Corpuscular Volume 107.9 FL (80.0-100.0) Mean Corpuscular Hemoglobin Concent 29.7 % (32.0-36.0) Red Cell Distribution Width 24.3 % (11.6-17.2) Platelet Count 52 TH/MM3 (150-450) Prothrombin Time 22.0 SEC (9.8-11.6) Activated Partial Thromboplast Time GREATER THAN 277.5 SEC Fibrinogen 92 mg/dL (227-377) Blood Urea Nitrogen 37 MG/DL (7-18) Creatinine 1.59 MG/DL (0.60-1.30) Random Glucose 132 MG/DL (74-106) Phosphorus Level 7.6 MG/DL (2.5-4.9) Magnesium Level 2.8 MG/DL (1.5-2.5) Potassium Level 5.4 MEQ/L (3.5-5.1) Carbon Dioxide Level 13.9 MEQ/L (21.0-32.0) Anion Gap 21 MEQ/L (5-15) Estimat Glomerular Filtration Rate 44 ML/MIN (>89) Lactic Acid Level 15.3 mmol/L (0.4-2.0) Ammonia 93 MCMOL/L (11-32) Troponin I 0.08 NG/ML (0.02-0.05) Imaging Last Impressions Chest Tube Insertion 11/12/16 0000 Signed Impressions: Service Date/Time: Saturday, November 12, 2016 00:50 - CONCLUSION: Emergent chest tube placement as above. Approximately 1.6 L of acute hemorrhage was removed. Andry Lucero MD Abdomen/Pelvis CT 11/12/16 0000 Signed Impressions: Service Date/Time: Saturday, November 12, 2016 00:41 - CONCLUSION: 1. Large right pleural effusion with suggestion of some leftward displacement of mediastinal structures. Fluid is somewhat dense with a hematocrit level characteristic of a bloody component. 2. Air in the nondependent portion of the biliary tree. Findings are nonspecific and may be related to the recent intervention. 3. No ascites is slightly more prominent compared to the prior. 4. Generalized anasarca. 5. Patchy enhancement of the renal parenchyma possibly representing early ATN. Unruly Meneses MD Liver Biopsy CT 11/11/16 0600 Signed Impressions: Service Date/Time: Friday, November 11, 2016 09:33 - CONCLUSION: Uncomplicated CT guided biopsy. Leonel Brand MD Thoracentesis Ultrasound 11/11/16 0000 Signed Impressions: Service Date/Time: Friday, November 11, 2016 17:35 - CONCLUSION: Uncomplicated ultrasound guided thoracentesis. Andry Lucero MD Head CT 11/11/16 0000 Signed Impressions: Service Date/Time: Saturday, November 12, 2016 00:41 - CONCLUSION: 1. Limited examination due to regional beam hardening artifact and head positioning in the scanner. 2. No obvious acute intracranial process. 3. Mixed density fluid and debris in the nasal passages and nasopharynx are likely related to recent intubation. Unruly Meneses MD Chest X-Ray 11/11/16 0000 Signed Impressions: Service Date/Time: Friday, November 11, 2016 21:47 - CONCLUSION: 1. Interim intubation and nasogastric tube placement as above. 2. Small to moderate right pleural effusion, slightly larger in the interim. No definite pneumothorax. 3. Diffuse right and patchy, mostly upper lobe pulmonary opacities worsening. Richy Levy MD CT Angiography 11/10/16 1238 Signed Impressions: Service Date/Time: October 13:17 - CONCLUSION: 1. No evidence of pulmonary embolism. 2. Small to moderate sized bilateral pleural effusions with adjacent compressive atelectasis. 3. Right axillary lymphadenopathy and mildly enlarged left paraaortic retrocrural lymphadenopathy. 4. Hepatosplenomegaly. 5. Ascites within the upper abdomen. 6. Tiny pericardial effusion. 7. Coronary artery calcifications. Leonel Brand MD PE at Discharge GENERAL: This is a well-nourished, well-developed patient, in no apparent distress. CARDIOVASCULAR: Regular rate and rhythm without murmurs, gallops, or rubs. RESPIRATORY: Clear to auscultation. Breath sounds equal bilaterally. No wheezes , rales, or rhonchi. GASTROINTESTINAL: Abdomen soft, non-tender, nondistended. Normal active bowel sounds MUSCULOSKELETAL: Extremities without clubbing, cyanosis, or edema. NEURO: Alert & Oriented x4 to person, place, time, situation. Moves all ext x4 Hospital Course Pleural effusion - Left US guided thoracentesis diagnostic and therapeutic (11/10/16) - supplemental oxygen - cardiac telemetry - PT consult - CT angiogram reviewed and reveals: no evidence of PE. Small to moderate- sized bilateral pleural effusions and adjacent compressive atelectasis. Small axillary lymphadenopathy and mildly enlarged left periaortic retrocrural lymphadenopathy. Hepatosplenomegaly. Ascites within the upper abdomen. Tiny pericardial effusion. Coronary artery calcifications - Chest x-ray reviewed and reveals small bilateral pleural effusions. By basilar atelectasis and/or infiltrate. Degenerative changes and scoliosis of the thoracolumbar spine - CT abdomen and pelvis reviewed and reveals moderate-sized bilateral pleural effusions. Heterogeneous enlargement of the liver with diffuse atelectasis suggesting cirrhosis. Abnormal retroperitoneal adenopathy with nodes measuring up to 2.2 cm. Concerning for malignancy - DVT prophylaxis with SCDs Shortness of breath See above Non-Hodgkin lymphoma See above Patient follows with [facility] as well as Dr. Massey locally last chemotherapy reported one week ago and placed on hold secondary to thrombocytopenia Thrombocytopenia See above Hyperbilirubinemia Chronic has been evaluated by [facility] - case d/w Oncology, Dr. Massey (11/10/16) - liver bx performed (11/11/16) --> results pending Fever - d/t lymphoma? - comgmt with ID - flagyl, azithromcyin - continue ethambutol - observe 11/11, patient is on the sixth floor post right-sided thoracentesis/liver biopsy. Patient returned to bed about 2029. Approximate 2100, Telemetry notified RN the patient was tachycardic. Would order investigate patient was becoming bradycardic and unresponsive in the bathroom. Rapid response team was called and patient was returned to his room. Then IMELDA LUCAS was called. Patient received CPR 10 minutes receiving epinephrine, calcium chloride, sodium bicarbonate and was intubated. Return of spontaneous circulation within 10 minutes. Patient was transferred to ICU then patient was starting to arouse off sedation he was started on Versed and fentanyl drips. Labs revealed: Hgb 5.4, Plt 52 and PTT 277.5 Patient was given 4 units PRBCs, 4 units FFP and 3 units Plts. Patient status continued to deteriorate. Patient pronounced 11/12/16 at 01: 19 Preliminary Cause of : Multi Organ Failure Please see chart for further details Pt Condition on Discharge: Deteriorating Discharge Instructions Additional Information Patient examined. Assessment and plan formulated with Damaris Arechiga PA-C. I agree with the above. Damaris Arechiga Nov 13, 2016 08:32 Fredrick Venegas DO Nov 14, 2016 15:00
[2016-11-14] MEDS ORDERED: PHARMACY ORDERED LAB ONE (15:45)
== END 2016-11-12 06:35 | disposition expired | DRG 208 ==
LOC: NEPC 12:04 → NEDA 15:31 → N06A 16:11 → N03B 11-11 21:14
PROVIDERS: ADMIT Hospitalist; ATTEND Hospitalist
PROC: 0W9B3ZX Drainage of Left Pleural Cavity, Percutaneous Approach, Diagnostic (ICD-10-PCS; principal; 2016-11-10)
PROC: 5A1935Z Respiratory Ventilation, Less than 24 Consecutive Hours (ICD-10-PCS; 2016-11-11)
PROC: 04HY32Z Insertion of Monitoring Device into Lower Artery, Percutaneous Approach (ICD-10-PCS; 2016-11-11)
PROC: 0FB03ZX Excision of Liver, Percutaneous Approach, Diagnostic (ICD-10-PCS; 2016-11-11)
PROC: 0W993ZX Drainage of Right Pleural Cavity, Percutaneous Approach, Diagnostic (ICD-10-PCS; 2016-11-11)
PROC: 30233K1 Transfusion of Nonautologous Frozen Plasma into Peripheral Vein, Percutaneous Approach (ICD-10-PCS; 2016-11-11)
PROC: 30233N1 Transfusion of Nonautologous Red Blood Cells into Peripheral Vein, Percutaneous Approach (ICD-10-PCS; 2016-11-11)
PROC: 30233R1 Transfusion of Nonautologous Platelets into Peripheral Vein, Percutaneous Approach (ICD-10-PCS; 2016-11-11)
PROC: 5A12012 Performance of Cardiac Output, Single, Manual (ICD-10-PCS; 2016-11-11)
PROC: 0BH17EZ Insertion of Endotracheal Airway into Trachea, Via Natural or Artificial Opening (ICD-10-PCS; 2016-11-11)
PROC: 06HM33Z Insertion of Infusion Device into Right Femoral Vein, Percutaneous Approach (ICD-10-PCS; 2016-11-11)
PROC: 0W9930Z Drainage of Right Pleural Cavity with Drainage Device, Percutaneous Approach (ICD-10-PCS; 2016-11-12)
DX: J90 Pleural effusion, not elsewhere classified (principal); J96.01 Acute respiratory failure with hypoxia; R57.8 Other shock; G93.1 Anoxic brain damage, not elsewhere classified; C81.90 Hodgkin lymphoma, unspecified, unspecified site; R18.8 Other ascites; E87.2 Acidosis; D62 Acute posthemorrhagic anemia; D69.59 Other secondary thrombocytopenia; E78.5 Hyperlipidemia, unspecified; T45.1X5A Adverse effect of antineoplastic and immunosuppressive drugs, initial encounter; K74.60 Unspecified cirrhosis of liver; R00.1 Bradycardia, unspecified; K21.9 Gastro-esophageal reflux disease without esophagitis; G47.33 Obstructive sleep apnea (adult) (pediatric); I46.9 Cardiac arrest, cause unspecified; Z72.0 Tobacco use
CPT/HCPCS: 31500; 32555; 32557; 36415; 36430; 36556; 36600; 47000; 70450; 71010; 71275; 74176; 74177; 76937; 77012; 80048; 80053; 80076; 82140; 82150; 82805; 82945; 82948; 83605; 83615; 83735; 83986; 84100; 84155; 84157; 84484; 85007; 85027; 85384; 85610; 85730; 86850; 86900; 86901; 86920; 86927; 87015; 87070; 87102; 87116; 87205; 87206; 87641; 88307; 88312; 88313; 89051; 92950; 93005; 94002; C1729; J0171; J2250; J2370; J3010; J7030; J7050; J7060; P9016; P9017; P9035; Q9967